=== PATIENT | female | born 1940 | race American Indian/Alaskan Native ===

== ENCOUNTER 2017-12-04 10:34 | Outpatient (CLI) | payer MEDICARE, OTHER ==
--- NOTE | 2017-12-04 11:53 | Ultrasound Report ---
ULTRASOUND ABDOMEN COMPLETE: TECHNIQUE: Transabdominal ultrasound with color Doppler interrogation. HISTORY: abdominal pain. COMPARISON: none. FINDINGS: LIVER: The liver parenchyma is echogenic and attenuates the ultrasound beam consistent with moderate diffuse fatty infiltration. No focal liver mass or surface nodularity is identified. BILIARY SYSTEM: The gallbladder has been surgically removed. No biliary dilatation. The CBD measures 4 mm. PANCREAS: Normal. SPLEEN: Normal. KIDNEYS: Normal. AORTA/IVC: Normal. ASCITES: None. IMPRESSION: Moderate fatty infiltration of the liver parenchyma. Cholecystectomy.
== END 2017-12-04 10:35 | disposition home or self-care (01) ==
LOC: US 10:34
PROVIDERS: ATTEND Internal Medicine
DX: K76.0 Fatty (change of) liver, not elsewhere classified (principal); Z90.49 Acquired absence of other specified parts of digestive tract
CPT/HCPCS: 76700

== ENCOUNTER 2017-12-13 10:54 | Emergency (ER) | payer MEDICARE, OTHER ==
[2017-12-13 11:30] LABS: Basophils # (Auto) 0.1 K/mm3 (0.0-0.1); Basophils % (Auto) 0.6 % (0.0-1.8); Eosinophils # (Auto) 0.3 K/mm3 (0.0-0.4); Eosinophils % (Auto) 3.9 % (0.0-4.3); Hematocrit 40.4 % (30.3-42.9); Hemoglobin 13.2 gm/dl (10.1-14.3); Lymphocytes # (Auto) 3.8 K/mm3 (1.2-5.4); Lymphocytes % (Auto) 44.5 % (13.4-35.0); Mean Corpuscular HGB Conc 33 % (30-34); Mean Corpuscular Hemoglobin 28 pg (28-32); Mean Corpuscular Volume 85 fl (79-97); Monocytes # (Auto) 0.8 K/mm3 (0.0-0.8); Monocytes % (Auto) 8.9 % (0.0-7.3); Platelet Count 262 K/mm3 (140-440); Red Blood Count 4.77 M/mm3 (3.65-5.03); Red Cell Distribution Width 16.3 % (13.2-15.2)
[2017-12-13 11:40] LABS: Albumin 3.9 g/dL (3.9-5); Calcium 9.6 mg/dL (8.4-10.2)
[2017-12-13 12:13] VITALS: BP 163/78
[2017-12-13 12:21] LABS: Bacteria,Urine 1+ /HPF (Negative); Bilirubin,Urine NEG (Negative); Blood,Urine NEG (Negative); Color,Urine Red (Yellow); Protein,Urine <15 mg/dL mg/dL (Negative); Urobilinogen,Urine < 2.0 mg/dL (<2.0)
--- NOTE | 2017-12-13 12:47 | Emergency Department Report ---
ED Abdominal Pain HPI - General Chief Complaint: Abdominal Pain Stated Complaint: LEFT FLANK PAIN Time Seen by Provider: 12/13/17 12:01 Source: patient Mode of arrival: Ambulatory Limitations: No Limitations - History of Present Illness -: Gradual, week(s) (She has had this upper left flank pain for weeks but it got worse 3 weeks ago when she lift her grandson from the floor. ) - Related Data Home Medications Medication Instructions Recorded Confirmed Last Taken Allopurinol [Zyloprim] 100 mg PO BID 10/14/14 10/14/14 Unknown Atenolol [Tenormin] 50 mg PO BID 10/14/14 10/14/14 Unknown Clonidine HCl [Catapres] 0.1 mg PO TID 10/14/14 10/14/14 Unknown Fluticasone [Flonase] 2 spray NS QDAY 10/14/14 10/14/14 Unknown Fluticasone/Salmeterol [Advair 1 each IH BID 10/14/14 10/14/14 Unknown Diskus 100-50 mcg] Furosemide [Lasix] 40 mg PO DAILY 10/14/14 10/14/14 Unknown HYDROcodone/ACETAMINOPHEN [Xodol 5 mg PO BID 10/14/14 10/20/14 Unknown 7.5-300 mg TAB] Insulin Aspart [NovoLOG Flexpen] 25 units SQ BID 10/14/14 10/14/14 Unknown Insulin Glargine,Hum.rec.anlog 60 unit SQ QHS 10/14/14 10/14/14 Unknown [Lantus Solostar] Liraglutide [Victoza 2-Broderick] 1.8 mg SQ QDAY 10/14/14 10/14/14 Unknown Pantoprazole [Protonix] 40 mg PO BID 10/14/14 10/14/14 Unknown Potassium Chloride [Klor-Con 10] 10 meq PO DAILY 10/14/14 10/14/14 Unknown Rosuvastatin (Nf) [Crestor] 10 mg PO QHS 10/14/14 10/14/14 Unknown Voltaren Gel 1 applicatio TRANSDERMA BID PRN 10/14/14 10/20/14 Unknown Previous Rx's Medication Instructions Recorded Last Taken Type Levofloxacin [Levaquin] 500 mg PO QDAY #5 tablet 10/22/14 Unknown Rx traMADol [Ultram] 50 mg PO Q4HR PRN #20 tablet 07/03/15 Unknown Rx Cyclobenzaprine [Flexeril] 10 mg PO TID PRN #20 tablet 12/13/17 Unknown Rx Allergies Allergy/AdvReac Type Severity Reaction Status Date / Time levofloxacin [From Levaquin] Allergy Intermediate Itching Verified 12/13/17 11: 00 aspirin Allergy Unknown Verified 12/13/17 11:00 ED Review of Systems ROS: Stated complaint: LEFT FLANK PAIN Other details as noted in HPI Constitutional: denies: chills, fever Eyes: denies: eye pain, eye discharge, vision change ENT: denies: ear pain, throat pain Respiratory: denies: cough, shortness of breath, wheezing Cardiovascular: denies: chest pain, palpitations Endocrine: no symptoms reported Gastrointestinal: denies: abdominal pain, nausea, diarrhea Genitourinary: denies: urgency, dysuria, discharge Musculoskeletal: denies: back pain, joint swelling, arthralgia Skin: denies: rash, lesions Neurological: denies: headache, weakness, paresthesias Psychiatric: denies: anxiety, depression Hematological/Lymphatic: denies: easy bleeding, easy bruising ED Past Medical Hx - Past Medical History Hx Hypertension: Yes Hx Congestive Heart Failure: No Hx Diabetes: Yes Hx Arthritis: Yes (Osteoarthritis bilateral knees) Hx Asthma: Yes Hx COPD: Yes (Home O2 2-3L) - Surgical History Hx Cholecystectomy: Yes Additional Surgical History: Hysterectomy, Surgery for tubal , tumor removed from abd. area - Social History Smoking Status: Never Smoker Substance Use Type: None - Medications Home Medications: Home Medications Medication Instructions Recorded Confirmed Last Taken Type Allopurinol [Zyloprim] 100 mg PO BID 10/14/14 10/14/14 Unknown History Atenolol [Tenormin] 50 mg PO BID 10/14/14 10/14/14 Unknown History Clonidine HCl [Catapres] 0.1 mg PO TID 10/14/14 10/14/14 Unknown History Fluticasone [Flonase] 2 spray NS QDAY 10/14/14 10/14/14 Unknown History Fluticasone/Salmeterol [Advair 1 each IH BID 10/14/14 10/14/14 Unknown History Diskus 100-50 mcg] Furosemide [Lasix] 40 mg PO DAILY 10/14/14 10/14/14 Unknown History HYDROcodone/ACETAMINOPHEN [Xodol 5 mg PO BID 10/14/14 10/20/14 Unknown History 7.5-300 mg TAB] Insulin Aspart [NovoLOG Flexpen] 25 units SQ BID 10/14/14 10/14/14 Unknown History Insulin Glargine,Hum.rec.anlog 60 unit SQ QHS 10/14/14 10/14/14 Unknown History [Lantus Solostar] Liraglutide [Victoza 2-Broderick] 1.8 mg SQ QDAY 10/14/14 10/14/14 Unknown History Pantoprazole [Protonix] 40 mg PO BID 10/14/14 10/14/14 Unknown History Potassium Chloride [Klor-Con 10] 10 meq PO DAILY 10/14/14 10/14/14 Unknown History Rosuvastatin (Nf) [Crestor] 10 mg PO QHS 10/14/14 10/14/14 Unknown History Voltaren Gel 1 applicatio TRANSDERMA BID PRN 10/14/14 10/20/14 Unknown History Levofloxacin [Levaquin] 500 mg PO QDAY #5 tablet 10/22/14 Unknown Rx traMADol [Ultram] 50 mg PO Q4HR PRN #20 tablet 07/03/15 Unknown Rx Cyclobenzaprine [Flexeril] 10 mg PO TID PRN #20 tablet 12/13/17 Unknown Rx ED Physical Exam - General Limitations: No Limitations General appearance: alert, in no apparent distress - Head Head exam: Present: atraumatic, normocephalic - Eye Eye exam: Present: normal appearance - ENT ENT exam: Present: mucous membranes moist - Neck Neck exam: Present: normal inspection - Respiratory Respiratory exam: Present: normal lung sounds bilaterally. Absent: respiratory distress - Cardiovascular Cardiovascular Exam: Present: regular rate, normal rhythm. Absent: systolic murmur, diastolic murmur, rubs, gallop - GI/Abdominal GI/Abdominal exam: Present: soft, tenderness (left upper flank), normal bowel sounds, hernia - Extremities Exam Extremities exam: Present: normal inspection - Back Exam Back exam: Present: normal inspection - Neurological Exam Neurological exam: Present: alert, oriented X3 - Psychiatric Psychiatric exam: Present: normal affect, normal mood - Skin Skin exam: Present: warm, dry, intact, normal color. Absent: rash ED Course Vital Signs 12/13/17 12/13/17 12/13/17 11:02 12:12 12:13 Temperature 97.7 F Pulse Rate 95 H 100 H Respiratory 18 18 18 Rate Blood Pressure 173/80 Blood Pressure 163/78 [Right] O2 Sat by Pulse 100 100 100 Oximetry ED Medical Decision Making - Lab Data Result diagrams: 12/13/17 11:11 12/13/17 11:11 Critical care attestation.: If time is entered above; I have spent that time in minutes in the direct care of this critically ill patient, excluding procedure time. ED Disposition Clinical Impression: Left flank pain Disposition: DC-01 TO HOME OR SELFCARE Is pt being admited?: No Does the pt Need Aspirin: No Condition: Stable Instructions: Abdominal Pain (ED) Prescriptions: Cyclobenzaprine [Flexeril] 10 mg PO TID PRN #20 tablet PRN Reason: Muscle Spasm Time of Disposition: 14:13
[2017-12-13] MEDS ORDERED: TORADOL IM ONE (13:10)
--- NOTE | 2017-12-13 13:31 | Cat Scan Report ---
CT scan of abdomen and pelvis without IV contrast: History: Abdominal pain. Findings: Bilateral chronic lung changes probably related to fibrosis and bronchiectasis. Moderate-sized sliding hiatal hernia. Normal liver with left lobe extending to spleen. Normal pancreas and spleen. Patient status post cholecystectomy. Normal adrenals kidney parenchyma and bladder. No free intraperitoneal fluid or air. No evidence of adenopathy. Normal appendix. Gaseous colon with a large volume of stool in colon. Diverticulosis sigmoid colon. No diverticulitis. Small left ovarian cyst. No modest reduction. Impression: Chronic lung changes. Moderate-sized sliding hiatal hernia. Gaseous colon with large volume stool in colon with diverticulosis colon. Bilateral inguinal hernia containing fat. Large ventral hernia containing fat measures 7 cm in transverse diameter.
== END 2017-12-13 14:54 | disposition home or self-care (01) ==
LOC: ED 10:54
DX: R10.9 Unspecified abdominal pain (principal); I10 Essential (primary) hypertension; E11.9 Type 2 diabetes mellitus without complications; M19.90 Unspecified osteoarthritis, unspecified site; J44.9 Chronic obstructive pulmonary disease, unspecified; Z79.4 Long term (current) use of insulin; Z88.6 Allergy status to analgesic agent; Z88.1 Allergy status to other antibiotic agents
CPT/HCPCS: 36415; 74176; 80053; 81001; 83690; 85025; 96372; 99284; J1885

== ENCOUNTER 2018-05-25 08:02 | Outpatient (CLI) | payer MEDICARE, OTHER ==
--- NOTE | 2018-05-26 11:16 | Mammography Report ---
BILATERAL DIGITAL SCREENING MAMMOGRAM with CAD : 05/25/18 08:02:00 CLINICAL: Routine screening. COMPARISON:02/17/14 FINDINGS: The breasts are heterogeneously dense, which may obscure small masses. No mass, architectural distortion or suspicious calcifications. IMPRESSION: No mammographic evidence of malignancy. BI-RADS CATEGORY: 2 -- Benign RECOMMENDATION: Routine mammographic screening in one year.
== END 2018-05-25 08:03 | disposition home or self-care (01) ==
LOC: MAMMO 08:02
PROVIDERS: ATTEND Internal Medicine
DX: Z12.31 Encounter for screening mammogram for malignant neoplasm of breast (principal); I10 Essential (primary) hypertension; E11.9 Type 2 diabetes mellitus without complications; E78.00 Pure hypercholesterolemia, unspecified; M17.0 Bilateral primary osteoarthritis of knee; J44.1 Chronic obstructive pulmonary disease with (acute) exacerbation; Z88.6 Allergy status to analgesic agent; Z88.1 Allergy status to other antibiotic agents; Z90.710 Acquired absence of both cervix and uterus; Z90.49 Acquired absence of other specified parts of digestive tract
CPT/HCPCS: 77067

== ENCOUNTER 2022-04-07 16:18 | Inpatient (IN) | payer MEDICARE, OTHER ==
--- NOTE | 2022-04-07 17:52 | Emergency Department Report ---
<JOSIE MELGAR - Last Filed: 04/07/22 20:56> ED Shortness of Breath HPI - General Chief Complaint: Dyspnea/Respdistress Stated Complaint: LOW 02 Time Seen by Provider: 04/07/22 17:03 Source: patient, EMS Mode of arrival: Stretcher Limitations: No Limitations - History of Present Illness Initial Comments: 81-year-old female with a past medical history of pulmonary fibrosis or COPD with home oxygen dependence, hypertension, and diabetes presents to the hospital from [facility] [facility] office for shortness of breath. Patient states she felt more short of breath this morning and complains of a cough productive of clear sputum. She complains of breath sided lateral rib pain worse with movement. No complaints of fever, calf tenderness, current leg edema, history of PE/DVT. Patient denies palpitations. Patient is hypertensive and tachycardic. Currently satting 97% on 1 and half liters of oxygen. Patient states she uses 6 L of oxygen at home with a long oxygen tube cannula because she feels better with a higher oxygen level. She cannot tell me she has been prescribed by the automatic lehr operator. Patient received a COVID booster last week. Pulmonology: Dr. Dietrich - Related Data Home Medications Medication Instructions Recorded Confirmed Last Taken Dulaglutide (Nf) [Trulicity (Nf)] 1.5 mg SUB-Q QWEEK 03/01/19 11/27/21 02/27/19 Fluticasone/Salmeterol [Advair 1 each IH BID 03/01/19 11/27/21 Unknown 500-50 Diskus] Mirtazapine [Remeron 30mg TAB] 30 mg PO DAILY 03/01/19 11/27/21 11/26/21 Previous Rx's Medication Instructions Recorded Last Taken Type Clopidogrel [Plavix] 75 mg PO QDAY #30 tablet 11/28/21 Unknown Rx Fluticasone [Flonase] 100 mcg NS QDAY #1 bottle 11/28/21 Unknown Rx Furosemide [Lasix TAB] 40 mg PO QDAY #30 tablet 11/28/21 Unknown Rx Insulin Aspart (Nf) [NovoLOG 100 10 unit SQ AC #1 vial 11/28/21 Unknown Rx UNITS/ML VIAL] Insulin Glargine [Lantus VIAL] 40 units SUB-Q QHS #2 vial 11/28/21 Unknown Rx Ipratropium/Albuterol Sulfate 1 ampul IH Q3H PRN #50 ampul.neb 11/28/21 Unknown Rx [DUONEB *Not for PRN Use*] Latanoprost 0.005% 1 drops OU QPM bottle 11/28/21 Unknown Rx Pantoprazole [Protonix TAB] 40 mg PO QDAY #30 tablet 11/28/21 Unknown Rx Potassium Chloride [K-Dur] 20 meq PO QDAY #30 11/28/21 Unknown Rx Prednisone [predniSONE 5 mg (6-Day 5 mg PO .TAPER #1 11/28/21 Unknown Rx Pack, 21 Tabs)] Rosuvastatin Calcium [Crestor] 10 mg PO QDAY #30 11/28/21 Unknown Rx allopurinoL [Zyloprim] 100 mg PO QDAY #30 tablet 11/28/21 Unknown Rx atenoloL [Tenormin] 50 mg PO QDAY #30 tablet 11/28/21 Unknown Rx calcitrioL [Rocaltrol] 0.5 mcg PO QDAY #30 capsule 11/28/21 Unknown Rx cloNIDine [Catapres] 0.1 mg PO TID #90 11/28/21 Unknown Rx levoFLOXacin [Levaquin] 750 mg PO QDAY #5 tablet 11/28/21 Unknown Rx traMADoL [Ultram 50 MG tab] 50 mg PO BID #20 11/28/21 Unknown Rx Allergies Allergy/AdvReac Type Severity Reaction Status Date / Time levofloxacin [From Levaquin] Allergy Intermediate Itching Verified 11/27/21 11:29 aspirin Allergy Unknown Verified 11/27/21 11:29 ED Past Medical Hx - Past Medical History Previous Medical History?: Yes Hx Hypertension: Yes Hx Congestive Heart Failure: No Hx Diabetes: Yes Hx Arthritis: Yes (Osteoarthritis bilateral knees) Hx Asthma: Yes Hx COPD: Yes - Surgical History Past Surgical History?: Yes Hx Cholecystectomy: Yes Additional Surgical History: Hysterectomy, Surgery for tubal , tumor removed from abd. area - Social History Smoking Status: Never Smoker Substance Use Type: Alcohol - Medications Home Medications: Home Medications Medication Instructions Recorded Confirmed Last Taken Type Dulaglutide (Nf) [Trulicity (Nf)] 1.5 mg SUB-Q QWEEK 03/01/19 11/27/21 02/27/19 History Fluticasone/Salmeterol [Advair 1 each IH BID 03/01/19 11/27/21 Unknown History 500-50 Diskus] Mirtazapine [Remeron 30mg TAB] 30 mg PO DAILY 03/01/19 11/27/21 11/26/21 History Clopidogrel [Plavix] 75 mg PO QDAY #30 tablet 11/28/21 Unknown Rx Fluticasone [Flonase] 100 mcg NS QDAY #1 bottle 11/28/21 Unknown Rx Furosemide [Lasix TAB] 40 mg PO QDAY #30 tablet 11/28/21 Unknown Rx Insulin Aspart (Nf) [NovoLOG 100 10 unit SQ AC #1 vial 11/28/21 Unknown Rx UNITS/ML VIAL] Insulin Glargine [Lantus VIAL] 40 units SUB-Q QHS #2 vial 11/28/21 Unknown Rx Ipratropium/Albuterol Sulfate 1 ampul IH Q3H PRN #50 ampul.neb 11/28/21 Unknown Rx [DUONEB *Not for PRN Use*] Latanoprost 0.005% 1 drops OU QPM bottle 11/28/21 Unknown Rx Pantoprazole [Protonix TAB] 40 mg PO QDAY #30 tablet 11/28/21 Unknown Rx Potassium Chloride [K-Dur] 20 meq PO QDAY #30 11/28/21 Unknown Rx Prednisone [predniSONE 5 mg (6-Day 5 mg PO .TAPER #1 11/28/21 Unknown Rx Pack, 21 Tabs)] Rosuvastatin Calcium [Crestor] 10 mg PO QDAY #30 11/28/21 Unknown Rx allopurinoL [Zyloprim] 100 mg PO QDAY #30 tablet 11/28/21 Unknown Rx atenoloL [Tenormin] 50 mg PO QDAY #30 tablet 11/28/21 Unknown Rx calcitrioL [Rocaltrol] 0.5 mcg PO QDAY #30 capsule 11/28/21 Unknown Rx cloNIDine [Catapres] 0.1 mg PO TID #90 11/28/21 Unknown Rx levoFLOXacin [Levaquin] 750 mg PO QDAY #5 tablet 11/28/21 Unknown Rx traMADoL [Ultram 50 MG tab] 50 mg PO BID #20 11/28/21 Unknown Rx ED Physical Exam - General Limitations: No Limitations - Other Other exam information: General: No acute distress Head: Atraumatic Eyes: normal appearance ENT: Moist mucous membranes Neck: Normal appearance, no midline tenderness Chest: Rhonchi right lung field CV: Regular rate and rhythm Abdomen: Soft, normal bowel sounds, nontender, nondistended, no rebound or guarding Back: Normal inspection Extremity: Normal inspection, full range of motion Neuro: Alert O x 3, no facial asymmetry, speech clear, no gross motor sensory deficit Psych: Appropriate behavior Skin: No rash ED Course - Reevaluation(s) Reevaluation #1: 04/07/22 19:53 Patient remains tachycardic at rest with heart rate 190-120. Saturation is 94 to 95% on 1.5 L. Patient continues to insist that she does not feel short of breath. Previous medical record reviewed inpatient was prescribed atenolol 50 mg daily in November. 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 Family member at the bedside also cannot confirm if patient is supposed to take atenolol. November states that patient appears to be doing much better than when she was seen at the automatic [facility] operator office with significant shortness of breath. ED Medical Decision Making - Lab Data Result diagrams: 04/07/22 17:46 04/07/22 17:46 Lab Results 04/07/22 04/07/22 04/07/22 Range/Units 17:46 17:46 17:46 WBC 9.9 (4.5-11.0) K/mm3 RBC 4.30 (3.65-5.03) M/mm3 Hgb 11.6 (10.1-14.3) gm/dl Hct 35.5 (30.3-42.9) % MCV 83 (79-97) fl MCH 27 L (28-32) pg MCHC 33 (30-34) % RDW 15.2 (13.2-15.2) % Plt Count 332 (140-440) K/mm3 Lymph % (Auto) 19.9 (13.4-35.0) % Arthur % (Auto) 8.1 H (0.0-7.3) % Eos % (Auto) 1.9 (0.0-4.3) % Baso % (Auto) 0.6 (0.0-1.8) % Lymph # (Auto) 2.0 (1.2-5.4) K/mm3 Arthur # (Auto) 0.8 (0.0-0.8) K/mm3 Eos # (Auto) 0.2 (0.0-0.4) K/mm3 Baso # (Auto) 0.1 (0.0-0.1) K/mm3 Seg Neutrophils % 69.5 (40.0-70.0) % Seg Neutrophils # 6.9 (1.8-7.7) K/mm3 PT 13.2 (12.2-14.9) Sec. INR 0.91 (0.87-1.13) APTT 32.1 (24.2-36.6) Sec. Sodium 140 (137-145) mmol/L Potassium 4.4 (3.6-5.0) mmol/L Chloride 98.1 (98-107) mmol/L Carbon Dioxide 28 (22-30) mmol/L Anion Gap 18 mmol/L BUN 21 H (7-17) mg/dL Creatinine 1.4 H (0.6-1.2) mg/dL Estimated GFR 44 ml/min BUN/Creatinine Ratio 15 % Glucose 320 H (65-100) mg/dL POC Glucose (70-105) mg/dL Calcium 9.9 (8.4-10.2) mg/dL Total Bilirubin 0.30 (0.1-1.2) mg/dL AST 19 (5-40) units/L ALT 12 (7-56) units/L Alkaline Phosphatase 89 (35-129) units/L Troponin T 0.013 (0.00-0.029) ng/mL NT-Pro-B Natriuret Pep 229.6 (0-900) pg/mL Total Protein 8.5 H (6.3-8.2) g/dL Albumin 4.0 (3.9-5) g/dL Albumin/Globulin Ratio 0.9 % TSH (0.270-4.200) mlU/mL Free T4 (0.76-1.46) ng/dL 04/07/22 04/07/22 Range/Units 17:46 20:40 WBC (4.5-11.0) K/mm3 RBC (3.65-5.03) M/mm3 Hgb (10.1-14.3) gm/dl Hct (30.3-42.9) % MCV (79-97) fl MCH (28-32) pg MCHC (30-34) % RDW (13.2-15.2) % Plt Count (140-440) K/mm3 Lymph % (Auto) (13.4-35.0) % Arthur % (Auto) (0.0-7.3) % Eos % (Auto) (0.0-4.3) % Baso % (Auto) (0.0-1.8) % Lymph # (Auto) (1.2-5.4) K/mm3 Arthur # (Auto) (0.0-0.8) K/mm3 Eos # (Auto) (0.0-0.4) K/mm3 Baso # (Auto) (0.0-0.1) K/mm3 Seg Neutrophils % (40.0-70.0) % Seg Neutrophils # (1.8-7.7) K/mm3 PT (12.2-14.9) Sec. INR (0.87-1.13) APTT (24.2-36.6) Sec. Sodium (137-145) mmol/L Potassium (3.6-5.0) mmol/L Chloride (98-107) mmol/L Carbon Dioxide (22-30) mmol/L Anion Gap mmol/L BUN (7-17) mg/dL Creatinine (0.6-1.2) mg/dL Estimated GFR ml/min BUN/Creatinine Ratio % Glucose (65-100) mg/dL POC Glucose 315 H (70-105) mg/dL Calcium (8.4-10.2) mg/dL Total Bilirubin (0.1-1.2) mg/dL AST (5-40) units/L ALT (7-56) units/L Alkaline Phosphatase (35-129) units/L Troponin T (0.00-0.029) ng/mL NT-Pro-B Natriuret Pep (0-900) pg/mL Total Protein (6.3-8.2) g/dL Albumin (3.9-5) g/dL Albumin/Globulin Ratio % TSH 0.913 (0.270-4.200) mlU/mL Free T4 0.94 (0.76-1.46) ng/dL - EKG Data -: EKG Interpreted by Ri EKG shows normal: sinus rhythm, ST-T waves (no stemi) Rate: tachycardia (120) - Radiology Data Radiology results: report reviewed CHEST 1 VIEW 04/07/2022 5:38 PM INDICATION / CLINICAL INFORMATION: Shortness of breath. COMPARISON: 11/26/21. FINDINGS: SUPPORT DEVICES: None. HEART / MEDIASTINUM: Mild cardiomegaly is stable. LUNGS / PLEURA: There is moderate patchy parenchymal disease in both lower lung zones, right greater than left, minimally changed since the prior exam. No pneumothorax. ADDITIONAL FINDINGS: No significant additional findings. IMPRESSION: Moderate parenchymal opacities in both lower lung zones are recurrent or chronic. CT angio chest INDICATION / CLINICAL INFORMATION: sob, hypoxia, chronic lung disease. TECHNIQUE: Axial CT images were obtained through the chest after injection of 100 cc of Omnipaque 350 IV contrast. 3 plane MIP and/or 3D reconstructions were produced. All CT scans at this location are performed using CT dose reduction for ALARA by means of automated exposure control. COMPARISON: CT of the chest from 03/03/2019. Same-day chest radiograph. FINDINGS: PULMONARY ARTERIES: No central or segmental pulmonary embolus. THORACIC AORTA: Mild atherosclerotic calcification without acute abnormality. HEART: Mild cardiac enlargement. No pericardial effusion. CORONARY ARTERY CALCIFICATION: Severe coronary artery calcifications. LYMPHADENOPATHY: Multiple calcified lymph nodes throughout the mediastinum and bilateral hilar regions noted. Prominent lymph nodes along the upper posterior mediastinum appear improved in size from prior CT from 2019. No axillary lymphadenopathy. LUNGS/PLEURA: Scattered subpleural reticulation with basilar predominant severe bronchiectasis, most pronounced in the right lower lobe. There is diffuse bronchial wall thickening. Patchy giancarlo bronchovascular nodules and mild airspace opacities in the right lower lobe. Mild patchy consolidation within the left lower lobe. No pleural effusion or pneumothorax. OTHER FINDINGS: None. UPPER ABDOMEN: No acute findings. SKELETAL SYSTEM: No acute osseous findings. IMPRESSION: 1. No evidence of pulmonary embolism. 2. Extensive bronchiectasis and fibrotic changes of the lower lungs, right greater than left, progressed from prior study in 2019. There is superimposed patchy airspace consolidation of bilateral lower lobes, suspicious for superimposed acute pneumonia. 3. Other stable chronic and incidental findings as above. - Medical Decision Making 81-year-old female with a past medical history of pulmonary fibrosis and home O2 dependence presents to the hospital with increased shortness of breath while at [employer] office today. Despite patient stating her symptoms are improved since ED arrival she had persistent sinus tachycardia. CT angiogram performed and revealed that patient has worsening fibrotic changes in bilateral lower lobe pneumonia. Blood cultures ordered. Antibiotics provided. Patient also received steroids and orders for insulin placed. As per medical record review patient has been prescribed atenolol in the past and it is unclear if this is part of her current medication list. 1 dose of atenolol ordered as well. Patient will be admitted to the hospital service with pulmonology consultation. Consultation ordered. Case will be signed out to Dr. Boston to call the nighttime hospitalist Dr. New to admit patient at shift change COVID test ordered Critical Care Time: No ED Disposition Clinical Impression: Bilateral pneumonia Qualifiers: Pneumonia type: due to unspecified organism Lung location: unspecified part of lung Qualified Code(s): J18.9 - Pneumonia, unspecified organism Disposition: ADMITTED INPATIENT Is pt being admited?: Yes Condition: Stable Instructions: Bacterial Pneumonia (ED) Time of Disposition: 21:00 <LAMBERT BOSTON - Last Filed: 04/07/22 22:37> ED Review of Systems ROS: Stated complaint: LOW 02 Other details as noted in HPI ED Course Vital Signs 04/07/22 04/07/22 04/07/22 16:33 17:10 17:21 Temperature 99.1 F 97.5 F L Pulse Rate 132 H 120 H Respiratory 20 26 H Rate Blood Pressure 220/110 Blood Pressure 163/80 [Left] O2 Sat by Pulse 95 98 98 Oximetry 04/07/22 04/07/22 18:31 21:07 Temperature Pulse Rate 121 H 123 H Respiratory 25 H Rate Blood Pressure 200/185 Blood Pressure 177/85 [Left] O2 Sat by Pulse 96 Oximetry - Reevaluation(s) Reevaluation #2: 04/07/22 22:35 Pt signed out to me with sob with working diagnosis of bilateral pneumonia on CT chest-- pending admission by the night hospitalist-- Dr Little consulted who accept pt for further evaluation and treatment. ED Medical Decision Making - Lab Data Result diagrams: 04/07/22 17:46 04/07/22 17:46 Critical care attestation.: If time is entered above; I have spent that time in minutes in the direct care of this critically ill patient, excluding procedure time. ED Disposition Does the pt Need Aspirin: No
[2022-04-07 18:01] LABS: Basophils # (Auto) 0.1 K/mm3 (0.0-0.1); Basophils % (Auto) 0.6 % (0.0-1.8); Eosinophils # (Auto) 0.2 K/mm3 (0.0-0.4); Eosinophils % (Auto) 1.9 % (0.0-4.3); Hematocrit 35.5 % (30.3-42.9); Hemoglobin 11.6 gm/dl (10.1-14.3); Lymphocytes % (Auto) 19.9 % (13.4-35.0); Mean Corpuscular HGB Conc 33 % (30-34); Mean Corpuscular Volume 83 fl (79-97); Monocytes # (Auto) 0.8 K/mm3 (0.0-0.8); Monocytes % (Auto) 8.1 % (0.0-7.3); Platelet Count 332 K/mm3 (140-440); Red Cell Distribution Width 15.2 % (13.2-15.2)
[2022-04-07 18:21] LABS: INR 0.91 (0.87-1.13)
[2022-04-07 18:22] LABS: Partial Thromboplastin Time 32.1 Sec. (24.2-36.6)
[2022-04-07] MEDS ORDERED: methylPREDNISolone Sod Succinate 125 MG/2 ML INJ IV ONE (18:27)
[2022-04-07 18:39] LABS: Calcium 9.9 mg/dL (8.4-10.2)
[2022-04-07 18:45] LABS: Free T4 (Free Thyroxine) 0.94 ng/dL (0.76-1.46)
[2022-04-07] MEDS ORDERED: atenoloL 50 MG TAB PO ONE (20:22)
[2022-04-07] MEDS ORDERED: INSULIN REGULAR, HUMAN 100 UNITS/1 ML IV ONE (20:23)
--- NOTE | 2022-04-07 20:53 | Cat Scan Report ---
CT angio chest INDICATION / CLINICAL INFORMATION: sob, hypoxia, chronic lung disease. TECHNIQUE: Axial CT images were obtained through the chest after injection of 100 cc of Omnipaque 350 IV contrast. 3 plane MIP and/or 3D reconstructions were produced. All CT scans at this location are performed using CT dose reduction for ALARA by means of automated exposure control. COMPARISON: CT of the chest from 03/03/2019. Same-day chest radiograph. FINDINGS: PULMONARY ARTERIES: No central or segmental pulmonary embolus. THORACIC AORTA: Mild atherosclerotic calcification without acute abnormality. HEART: Mild cardiac enlargement. No pericardial effusion. CORONARY ARTERY CALCIFICATION: Severe coronary artery calcifications. LYMPHADENOPATHY: Multiple calcified lymph nodes throughout the mediastinum and bilateral hilar region s noted. Prominent lymph nodes along the upper posterior mediastinum appear improved in size from josselin or CT from 2019. No axillary lymphadenopathy. LUNGS/PLEURA: Scattered subpleural reticulation with basilar predominant severe bronchiectasis, most pronounced in the right lower lobe. There is diffuse bronchial wall thickening. Patchy peribronchovas cular nodules and mild airspace opacities in the right lower lobe. Mild patchy consolidation within t he left lower lobe. No pleural effusion or pneumothorax. OTHER FINDINGS: None. UPPER ABDOMEN: No acute findings. SKELETAL SYSTEM: No acute osseous findings. IMPRESSION: 1. No evidence of pulmonary embolism. 2. Extensive bronchiectasis and fibrotic changes of the lower lungs, right greater than left, progres sed from prior study in 2019. There is superimposed patchy airspace consolidation of bilateral lower lobes, suspicious for superimposed acute pneumonia. 3. Other stable chronic and incidental findings as above. Signer Name: Anatoly Platt MD Signed: 04/07/2022 8:48 PM Workstation Name: [id number]
[2022-04-07] MEDS ORDERED: cefTRIAXone/NS 1 GM/50 ML 1 GM/50 ML BAG IV ONE (20:54)
[2022-04-07] MEDS ORDERED: AZITHROMYCIN/NS 500 MG/250 ML 500 MG/250 ML BAG IV ONE (20:55)
[2022-04-07] MEDS ORDERED: DEXTROSE 50% IN WATER (25GM) 50 ML SYRINGE IV PRN (23:14)
[2022-04-07] MEDS ORDERED: MAGNESIUM HYDROXIDE (MOM) ORAL LIQD UDC PO PRN (23:14)
[2022-04-07] MEDS ORDERED: MORPHINE 2 MG/1 ML INJ IV PRN (23:14)
[2022-04-07] MEDS ORDERED: ONDANSETRON 4 MG/2 ML INJ IV PRN (23:14)
[2022-04-07] MEDS ORDERED: MORPHINE 4 MG/1 ML INJ IV PRN (23:14)
--- NOTE | 2022-04-07 23:28 | History and Physical Report ---
History of Present Illness Date of examination: 04/07/22 Date of admission: 04/07/2022 Chief complaint: Shortness of Breath History of present illness: 81-year-old female, past medical history of pulmonary fibrosis, COPD with oxygen dependence, diabetes mellitus presents to the emergency room today [facility] for evaluation of shortness of breath. Patient has been having shortness of breath, cough productive of some clear sputum over the last couple of hours. She denies any fever or chills, no chest pain. She however complains of some pain on the rib cage which is worse upon movement. She denies any fall or trauma to the chest or ribs.\Patient denies any lower extremity pain or swelling. Denies any headache or dizziness and no diaphoresis. Upon arrival in the emergency room patient was found to be slightly tachycardic and hypertensive. She denies any sick contacts and no recent travel. Denies any contact with anyone with COVID-19. Patient is fully vaccinated against COVID-19. Work-up in the emergency room today, chest x-ray reveals bilateral pneumonia. Patient started on empiric IV antibiotics. Past History Past Medical History: arthritis, COPD, diabetes, hypertension, other (Asthma) Past Surgical History: Other (Hysterectomy, Surgery for tubal , tumor removed from abd. area) Social history: alcohol abuse (Occasional alcohol). denies: smoking Family history: no significant family history Medications and Allergies Allergies Allergy/AdvReac Type Severity Reaction Status Date / Time levofloxacin [From Levaquin] Allergy Intermediate Itching Verified 11/27/21 11:29 aspirin Allergy Unknown Verified 11/27/21 11:29 Home Medications Medication Instructions Recorded Confirmed Last Taken Type Dulaglutide (Nf) [Trulicity (Nf)] 1.5 mg SUB-Q QWEEK 03/01/19 11/27/21 02/27/19 History Fluticasone/Salmeterol [Advair 1 each IH BID 03/01/19 11/27/21 Unknown History 500-50 Diskus] Mirtazapine [Remeron 30mg TAB] 30 mg PO DAILY 03/01/19 11/27/21 11/26/21 History Clopidogrel [Plavix] 75 mg PO QDAY #30 tablet 11/28/21 Unknown Rx Fluticasone [Flonase] 100 mcg NS QDAY #1 bottle 11/28/21 Unknown Rx Furosemide [Lasix TAB] 40 mg PO QDAY #30 tablet 11/28/21 Unknown Rx Insulin Aspart (Nf) [NovoLOG 100 10 unit SQ AC #1 vial 11/28/21 Unknown Rx UNITS/ML VIAL] Insulin Glargine [Lantus VIAL] 40 units SUB-Q QHS #2 vial 11/28/21 Unknown Rx Ipratropium/Albuterol Sulfate 1 ampul IH Q3H PRN #50 ampul.neb 11/28/21 Unknown Rx [DUONEB *Not for PRN Use*] Latanoprost 0.005% 1 drops OU QPM bottle 11/28/21 Unknown Rx Pantoprazole [Protonix TAB] 40 mg PO QDAY #30 tablet 11/28/21 Unknown Rx Potassium Chloride [K-Dur] 20 meq PO QDAY #30 11/28/21 Unknown Rx Prednisone [predniSONE 5 mg (6-Day 5 mg PO .TAPER #1 11/28/21 Unknown Rx Pack, 21 Tabs)] Rosuvastatin Calcium [Crestor] 10 mg PO QDAY #30 11/28/21 Unknown Rx allopurinoL [Zyloprim] 100 mg PO QDAY #30 tablet 11/28/21 Unknown Rx atenoloL [Tenormin] 50 mg PO QDAY #30 tablet 11/28/21 Unknown Rx calcitrioL [Rocaltrol] 0.5 mcg PO QDAY #30 capsule 11/28/21 Unknown Rx cloNIDine [Catapres] 0.1 mg PO TID #90 11/28/21 Unknown Rx levoFLOXacin [Levaquin] 750 mg PO QDAY #5 tablet 11/28/21 Unknown Rx traMADoL [Ultram 50 MG tab] 50 mg PO BID #20 11/28/21 Unknown Rx Active Meds: Active Medications Acetaminophen (Acetaminophen 325 Mg Tab) 650 mg PO Q4H PRN PRN Reason: Pain MILD(1-3)/Fever >100.5/RUANO Dextrose (Dextrose 50% In Water (25gm) 50 Ml Syringe) 50 ml IV Q30MIN PRN; Protocol PRN Reason: Hypoglycemia Heparin Sodium (Porcine) (Heparin 5,000 Unit/1 Ml Vial) 5,000 unit SUB-Q Q8HR LESLEE Sodium Chloride (Nacl 0.9% 1000 Ml) 1,000 mls @ 75 mls/hr IV DIRECT LESLEE Ceftriaxone Sodium (Rocephin/Ns 2 Gm/100 Ml) 2 gm in 100 mls @ 200 mls/hr IV Q24H LESLEE; Protocol Insulin Human Lispro (Insulin Lispro 100 Unit/Ml) 0 unit SUB-Q ACHS LESLEE; Protocol Magnesium Hydroxide (Magnesium Hydroxide (Mom) Oral Liqd Udc) 30 ml PO Q4H PRN PRN Reason: Constipation Morphine Sulfate (Morphine 2 Mg/1 Ml Inj) 2 mg IV Q4H PRN PRN Reason: Pain, Moderate (4-6) Morphine Sulfate (Morphine 4 Mg/1 Ml Inj) 4 mg IV Q4H PRN PRN Reason: Pain , Severe (7-10) Ondansetron HCl (Ondansetron 4 Mg/2 Ml Inj) 4 mg IV Q8H PRN PRN Reason: Nausea And Vomiting Sodium Chloride (Sodium Chloride 0.9% 10 Ml Flush Syringe) 10 ml IV BID LESLEE Sodium Chloride (Sodium Chloride 0.9% 10 Ml Flush Syringe) 10 ml IV PRN PRN PRN Reason: LINE FLUSH Review of Systems Constitutional: no fever, no chills Ears, nose, mouth and throat: no nasal congestion, no sore throat Cardiovascular: no chest pain, no palpitations Respiratory: cough, shortness of breath Gastrointestinal: no abdominal pain, no nausea, no vomiting, no diarrhea Genitourinary Female: no pelvic pain, no flank pain, no dysuria Musculoskeletal: no neck pain, no low back pain Integumentary: no rash, no pruritis Neurological: no headaches, no confusion Psychiatric: no anxiety, no depression Endocrine: no polydipsia, no polyuria, no nocturia Exam - Constitutional Vitals: Temp Pulse Resp BP Pulse Ox 97.5 F L 123 H 25 H 200/185 96 04/07/22 17:10 04/07/22 21:07 04/07/22 18:31 04/07/22 21:07 04/07/22 18:31 General appearance: Present: no acute distress, well-nourished - EENT Eyes: Present: PERRL, EOM intact. Absent: scleral icterus ENT: hearing intact, clear oral mucosa, dentition normal - Neck Neck: Present: supple, normal ROM - Respiratory Respiratory effort: normal Respiratory: bilateral: rales - Cardiovascular Rhythm: regular Heart Sounds: Present: S1 & S2. Absent: gallop, systolic murmur, diastolic murmur, rub, click - Extremities Extremities: no ischemia, pulses intact, No edema, Full ROM Peripheral Pulses: within normal limits - Abdominal General gastrointestinal: Present: soft, non-tender, non-distended, normal bowel sounds. Absent: mass - Integumentary Integumentary: Present: clear, warm, dry, normal turgor. Absent: rash - Musculoskeletal Musculoskeletal: strength equal bilaterally - Psychiatric Psychiatric: appropriate mood/affect, intact judgment & insight, memory intact, cooperative - Neurologic Neurologic: CNII-XII intact, no focal deficits, moves all extremities HEART Score - HEART Score Troponin: Troponin T 0.013 ng/mL (0.00-0.029) 04/07/22 17:46 Results - Labs CBC & Chem 7: 04/08/22 05:04 04/08/22 05:04 Labs: Abnormal lab results 04/07/22 04/07/22 04/07/22 Range/Units 17:46 17:46 20:40 MCH 27 L (28-32) pg [place] % (Auto) 8.1 H (0.0-7.3) % BUN 21 H (7-17) mg/dL Creatinine 1.4 H (0.6-1.2) mg/dL Glucose 320 H (65-100) mg/dL POC Glucose 315 H (70-105) mg/dL Total Protein 8.5 H (6.3-8.2) g/dL Assessment and Plan Assessment: 1. Pneumonia 2. Hyponatremia 3. COPDoxygen dependent 4. Hypertension 5. Hyperglycemia 6. Acute on chronic renal failure Plan:: 1. Patient placed on empiric IV antibiotics 2. will keep O2 saturation greater equal to 92%. 3. Consult placed to pulmonology for further evaluation and recommendation. 4. Will resume routine home medications. 5. Placed on sliding scale insulin, will monitor accuchecks. 6. Please consult to nephrology for evaluation of function DVT Propphylaxis: SQ Heparin Code Status: Full Code
[2022-04-08] MEDS: HEPARIN 5,000 UNIT/1 ML VIAL SUB-Q SCH ×4 (05:40→21:57)
[2022-04-08 05:45] LABS: Basophils % (Auto) 0.2 % (0.0-1.8); Hematocrit 36.7 % (30.3-42.9); Hemoglobin 11.7 gm/dl (10.1-14.3); Lymphocytes # (Auto) 2.1 K/mm3 (1.2-5.4); Lymphocytes % (Auto) 26.7 % (13.4-35.0); Mean Corpuscular HGB Conc 32 % (30-34); Mean Corpuscular Volume 83 fl (79-97); Monocytes # (Auto) 0.1 K/mm3 (0.0-0.8); Monocytes % (Auto) 0.8 % (0.0-7.3); Platelet Count 337 K/mm3 (140-440); Red Cell Distribution Width 14.9 % (13.2-15.2)
[2022-04-08 06:00] LABS: Calcium 9.8 mg/dL (8.4-10.2)
[2022-04-08] MEDS ORDERED: INSULIN LISPRO 100 UNIT/ML SUB-Q ONE ×2 (06:12→22:40)
[2022-04-08] MEDS: SODIUM CHLORIDE 0.9% 1000 ML 1,000 ML IV SCH ×2 (06:28→21:56)
[2022-04-08] MEDS: INSULIN LISPRO 100 UNIT/ML SUB-Q SCH ×4 (08:10→22:51)
--- NOTE | 2022-04-08 09:00 | Consultation ---
History of Present Illness - Reason for Consult Consult date: 04/08/22 acute renal failure - History of Present Illness 81-year-old woman with past medical history of pulmonary fibrosis, COPD with oxygen dependence, diabetes mellitus presents for shortness of breath. Sent for pulmonary clinic, follows with Dr. Daly. At time of consult, patient appearing stable, denies any acute issues. Denies any known kidney disease, states has never seen nephrology. Was seen on consult by [facility] many years ago on prior [facility] admission. Patient has been having shortness of breath, edema, pain, nausea, vomiting. Admitted for bilateral pneumonia, on antibiotics, on 3L NC. Past History Past Medical History: arthritis, COPD, diabetes, hypertension, other (Asthma) Past Surgical History: Other (Hysterectomy, Surgery for tubal , tumor removed from abd. area) Social history: alcohol abuse (Occasional alcohol). denies: smoking Family history: no significant family history Medications and Allergies Allergies Allergy/AdvReac Type Severity Reaction Status Date / Time [facility] [[facility] Allergy Intermediate Itching Verified 11/27/21 11:29 aspirin Allergy Unknown Verified 11/27/21 11:29 Home Medications Medication Instructions Recorded Confirmed Last Taken Type Dulaglutide (Nf) [Trulicity (Nf)] 1.5 mg SUB-Q QWEEK 03/01/19 04/09/22 02/27/19 History Fluticasone/Salmeterol [Advair 1 each IH BID 03/01/19 04/09/22 Unknown History 500-50 Diskus] Mirtazapine [Remeron 30mg TAB] 30 mg PO DAILY 03/01/19 04/09/22 11/26/21 History Clopidogrel [Plavix] 75 mg PO QDAY #30 tablet 11/28/21 04/09/22 Unknown Rx Fluticasone [Flonase] 100 mcg NS QDAY #1 bottle 11/28/21 04/09/22 Unknown Rx Furosemide [Lasix TAB] 40 mg PO QDAY #30 tablet 11/28/21 04/09/22 Unknown Rx Insulin Aspart (Nf) [NovoLOG 100 10 unit SQ AC #1 vial 11/28/21 04/09/22 Unknown Rx UNITS/ML VIAL] Insulin Glargine [Lantus VIAL] 40 units SUB-Q QHS #2 vial 11/28/21 04/09/22 Unknown Rx Ipratropium/Albuterol Sulfate 1 ampul IH Q3H PRN #50 ampul.neb 11/28/21 04/09/22 Unknown Rx [DUONEB *Not for PRN Use*] Latanoprost 0.005% 1 drops OU QPM bottle 11/28/21 04/09/22 Unknown Rx Pantoprazole [Protonix TAB] 40 mg PO QDAY #30 tablet 11/28/21 04/09/22 Unknown Rx Potassium Chloride [K-Dur] 20 meq PO QDAY #30 11/28/21 04/09/22 Unknown Rx Prednisone [predniSONE 5 mg (6-Day 5 mg PO .TAPER #1 11/28/21 04/09/22 Unknown Rx Pack, 21 Tabs)] Rosuvastatin Calcium [Crestor] 10 mg PO QDAY #30 11/28/21 04/09/22 Unknown Rx allopurinoL [Zyloprim] 100 mg PO QDAY #30 tablet 11/28/21 04/09/22 Unknown Rx atenoloL [Tenormin] 50 mg PO QDAY #30 tablet 11/28/21 04/09/22 Unknown Rx calcitrioL [Rocaltrol] 0.5 mcg PO QDAY #30 capsule 11/28/21 04/09/22 Unknown Rx cloNIDine [Catapres] 0.1 mg PO TID #90 11/28/21 04/09/22 Unknown Rx levoFLOXacin [Levaquin] 750 mg PO QDAY #5 tablet 11/28/21 04/09/22 Unknown Rx traMADoL [Ultram 50 MG tab] 50 mg PO BID #20 11/28/21 04/09/22 Unknown Rx Active Meds: Active Medications Acetaminophen (Acetaminophen 325 Mg Tab) 650 mg PO Q4H PRN PRN Reason: Pain MILD(1-3)/Fever >100.5/RUANO Azithromycin (Azithromycin 250 Mg Tab) 500 mg PO QHS LESLEE Stop: 04/11/22 22:01 Dextrose (Dextrose 50% In Water (25gm) 50 Ml Syringe) 50 ml IV Q30MIN PRN; Protocol PRN Reason: Hypoglycemia Heparin Sodium (Porcine) (Heparin 5,000 Unit/1 Ml Vial) 5,000 unit SUB-Q Q8HR LESLEE Last Admin: 04/08/22 05:40 Dose: 5,000 unit Hydralazine HCl (Hydralazine 20 Mg/1 Ml Inj) 10 mg IV Q4HR PRN PRN Reason: Hypertension Sodium Chloride (Nacl 0.9% 1000 Ml) 1,000 mls @ 75 mls/hr IV DIRECT LESLEE Last Admin: 04/08/22 06:28 Dose: 75 mls/hr Ceftriaxone Sodium (Rocephin/Ns 2 Gm/100 Ml) 2 gm in 100 mls @ 200 mls/hr IV Q24H LESLEE; Protocol Stop: 04/11/22 23:59 Insulin Human Lispro (Insulin Lispro 100 Unit/Ml) 0 unit SUB-Q ACHS LESLEE; Pr otocol Last Admin: 04/08/22 08:10 Dose: 10 unit Magnesium Hydroxide (Magnesium Hydroxide (Mom) Oral Liqd Udc) 30 ml PO Q4H PRN PRN Reason: Constipation Morphine Sulfate (Morphine 2 Mg/1 Ml Inj) 2 mg IV Q4H PRN PRN Reason: Pain, Moderate (4-6) Morphine Sulfate (Morphine 4 Mg/1 Ml Inj) 4 mg IV Q4H PRN PRN Reason: Pain , Severe (7-10) Ondansetron HCl (Ondansetron 4 Mg/2 Ml Inj) 4 mg IV Q8H PRN PRN Reason: Nausea And Vomiting Sodium Chloride (Sodium Chloride 0.9% 10 Ml Flush Syringe) 10 ml IV BID LESLEE Sodium Chloride (Sodium Chloride 0.9% 10 Ml Flush Syringe) 10 ml IV PRN PRN PRN Reason: LINE FLUSH Last Admin: 04/08/22 06:28 Dose: 10 ml Review of Systems All systems: negative (as per HPI) Exam - Vital Signs Vital signs: Vital Signs Temp Pulse Resp BP Pulse Ox 99.1 F 132 H 20 220/110 95 04/07/22 16:33 04/07/22 16:33 04/07/22 16:33 04/07/22 16:33 04/07/22 16:33 - General Appearance General appearance: well-developed, well-nourished EENT: ATNC Neck: Present: neck supple Respiratory: Clear to Ascultation, Other (on NC) Heart: regular, S1S2 Gastrointestinal: Present: normoactive bowel sounds Integumentary: no rash, warm and dry Neurologic: no focal deficit, no asterixis Results - Lab Results 04/08/22 05:04 04/08/22 17:21 Most recent lab results Calcium 9.8 mg/dL (8.4-10.2) 04/08/22 05:04 Assessment and Plan # Acute Kidney Injury: creatinine 1.5->1.7; suspect pre-renal injury from hyperglycemia as well as tubular injury in setting of sepsis, tachycardia. No labs from today, recommend ongoing supportive measures for now, note IVF order - check PTH, urinalysis to assist with chronicity - renal imaging ordered - avoid nephrotoxins - renally dose medications - consider biopsy if DAPHNE worsening with no clear etiology, check serologies to consider GN injury pending urinalysis - no immediate need for renal replacement therapy # Alkalosis: suspect due to respiratory, CO2 retention? # Sepsis, Pneumonia: care per primary # HTN: BP stable on current regimen # DM # COPD, Pulmonary Fibrosis: pulmonary following
--- NOTE | 2022-04-08 11:29 | Progress Note ---
Assessment and Plan Assessment and plan: 81-year-old female, past medical history of pulmonary fibrosis, COPD with oxygen dependence, diabetes mellitus presents to the emergency room on 04/07 from the [facility] for evaluation of shortness of breath. Patient has been having shortness of breath, cough productive of some clear sputum. Upon arrival in the emergency room patient was found to be slightly tachycardic and hypertensive. Chest x-ray revealed bilateral pneumonia. Sepsis. Present on admission. Patient meets criteria given the tachypnea, tachycardia and diagnosis of pneumonia. Pneumonia Hyponatremia COPDoxygen dependent Hypertension Hyperglycemia Acute kidney injury on CKD. Pulmonary fibrosis. Diabetes mellitus type 2 Hospital course: 04/08/2022. Continue IV antibiotics and follow-up COVID PCR. Await pulmonary evaluation continue sliding scale insulin and monitor Accu-Cheks. Nephrology consultation pending. History Interval history: No new issues overnight Hospitalist Physical - Constitutional Vitals: Temp Pulse Resp BP Pulse Ox 97.9 F 99 H 22 158/81 98 04/08/22 06:57 04/08/22 06:57 04/08/22 06:57 04/08/22 06:57 04/08/22 08:22 General appearance: Present: no acute distress, well-nourished - EENT Eyes: Present: PERRL, EOM intact ENT: hearing intact, clear oral mucosa, dentition normal - Neck Neck: Present: supple, normal ROM - Respiratory Respiratory effort: normal Respiratory: bilateral: CTA - Cardiovascular Rhythm: regular Heart Sounds: Present: S1 & S2. Absent: gallop, rub - Extremities Extremities: no ischemia, No edema, Full ROM - Abdominal General gastrointestinal: soft, non-tender, non-distended, normal bowel sounds - Integumentary Integumentary: Present: clear, warm, dry - Neurologic Neurologic: CNII-XII intact, moves all extremities HEART Score - HEART Score Troponin: Troponin T 0.013 ng/mL (0.00-0.029) 04/07/22 17:46 Results - Labs CBC & Chem 7: 04/08/22 05:04 04/08/22 05:04 Labs: Laboratory Last Values WBC 7.7 K/mm3 (4.5-11.0) 04/08/22 05:04 RBC 4.40 M/mm3 (3.65-5.03) 04/08/22 05:04 Hgb 11.7 gm/dl (10.1-14.3) 04/08/22 05:04 Hct 36.7 % (30.3-42.9) 04/08/22 05:04 MCV 83 fl (79-97) 04/08/22 05:04 MCH 27 pg (28-32) L 04/08/22 05:04 MCHC 32 % (30-34) 04/08/22 05:04 RDW 14.9 % (13.2-15.2) 04/08/22 05:04 Plt Count 337 K/mm3 (140-440) 04/08/22 05:04 Lymph % (Auto) 26.7 % (13.4-35.0) 04/08/22 05:04 [place] % (Auto) 0.8 % (0.0-7.3) 04/08/22 05:04 Eos % (Auto) 0.0 % (0.0-4.3) 04/08/22 05:04 Baso % (Auto) 0.2 % (0.0-1.8) 04/08/22 05:04 Lymph # (Auto) 2.1 K/mm3 (1.2-5.4) 04/08/22 05:04 [place] # (Auto) 0.1 K/mm3 (0.0-0.8) 04/08/22 05:04 Eos # (Auto) 0.0 K/mm3 (0.0-0.4) 04/08/22 05:04 Baso # (Auto) 0.0 K/mm3 (0.0-0.1) 04/08/22 05:04 Seg Neutrophils % 72.3 % (40.0-70.0) H 04/08/22 05:04 Seg Neutrophils # 5.6 K/mm3 (1.8-7.7) 04/08/22 05:04 PT 13.2 Sec. (12.2-14.9) 04/07/22 17:46 INR 0.91 (0.87-1.13) 04/07/22 17:46 APTT 32.1 Sec. (24.2-36.6) 04/07/22 17:46 Sodium 138 mmol/L (137-145) 04/08/22 05:04 Potassium 4.9 mmol/L (3.6-5.0) 04/08/22 05:04 Chloride 96.7 mmol/L (98-107) L 04/08/22 05:04 Carbon Dioxide 31 mmol/L (22-30) H 04/08/22 05:04 Anion Gap 15 mmol/L 04/08/22 05:04 BUN 26 mg/dL (7-17) H 04/08/22 05:04 Creatinine 1.7 mg/dL (0.6-1.2) H 04/08/22 05:04 Estimated GFR 35 ml/min 04/08/22 05:04 BUN/Creatinine Ratio 15 % 04/08/22 05:04 Glucose 510 mg/dL (65-100) H* 04/08/22 05:04 POC Glucose 438 mg/dL (70-105) H 04/08/22 07:38 Calcium 9.8 mg/dL (8.4-10.2) 04/08/22 05:04 Total Bilirubin 0.30 mg/dL (0.1-1.2) 04/07/22 17:46 AST 19 units/L (5-40) 04/07/22 17:46 ALT 12 units/L (7-56) 04/07/22 17:46 Alkaline Phosphatase 89 units/L (35-129) 04/07/22 17:46 Troponin T 0.013 ng/mL (0.00-0.029) 04/07/22 17:46 NT-Pro-B Natriuret Pep 229.6 pg/mL (0-900) 04/07/22 17:46 Total Protein 8.5 g/dL (6.3-8.2) H 04/07/22 17:46 Albumin 4.0 g/dL (3.9-5) 04/07/22 17:46 Albumin/Globulin Ratio 0.9 % 04/07/22 17:46 TSH 0.913 mlU/mL (0.270-4.200) 04/07/22 17:46 Free T4 0.94 ng/dL (0.76-1.46) 04/07/22 17:46 Microbiology: Microbiology 04/07/22 21:12 Peripheral/Venous Blood Culture - Preliminary Culture in Progress 04/07/22 21:12 Peripheral/Venous Blood Culture - Preliminary Culture in Progress Active Medications - Current Medications Current Medications: Generic Name Dose Route Start Last Admin Trade Name Daltonq PRN Reason Stop Dose Admin Acetaminophen 650 mg 04/07/22 23:14 Acetaminophen 325 Mg Tab PO Q4H PRN Pain MILD(1-3)/Fever >100.5/RUANO Azithromycin 500 mg 04/08/22 22:00 Azithromycin 250 Mg Tab PO 04/11/22 22:01 QHS LESLEE Dextrose 50 ml 04/07/22 23:14 Dextrose 50% In Water (25gm) 50 Ml Syringe IV Q30MIN PRN Hypoglycemia Protocol Heparin Sodium (Porcine) 5,000 unit 04/08/22 06:00 04/08/22 05:40 Heparin 5,000 Unit/1 Ml Vial SUB-Q 5,000 unit Q8HR LESLEE Administration Hydralazine HCl 10 mg 04/08/22 06:13 Hydralazine 20 Mg/1 Ml Inj IV Q4HR PRN Hypertension Sodium Chloride 1,000 mls @ 75 mls/hr 04/07/22 23:15 04/08/22 06:28 Nacl 0.9% 1000 Ml IV 75 mls/hr DIRECT LESLEE Administration Ceftriaxone Sodium 2 gm in 100 mls @ 200 mls/hr 04/08/22 21:00 Rocephin/Ns 2 Gm/100 Ml IV 04/11/22 23:59 Q24H LESLEE Protocol Insulin Human Lispro 0 unit 04/08/22 07:30 04/08/22 08:10 Insulin Lispro 100 Unit/Ml SUB-Q 10 unit ACHS LESLEE Administration Protocol Magnesium Hydroxide 30 ml 04/07/22 23:14 Magnesium Hydroxide (Mom) Oral Liqd Udc PO Q4H PRN Constipation Morphine Sulfate 2 mg 04/07/22 23:14 Morphine 2 Mg/1 Ml Inj IV Q4H PRN Pain, Moderate (4-6) Morphine Sulfate 4 mg 04/07/22 23:14 Morphine 4 Mg/1 Ml Inj IV Q4H PRN Pain , Severe (7-10) Ondansetron HCl 4 mg 04/07/22 23:14 Ondansetron 4 Mg/2 Ml Inj IV Q8H PRN Nausea And Vomiting Sodium Chloride 10 ml 04/08/22 10:00 Sodium Chloride 0.9% 10 Ml Flush Syringe IV BID LESLEE Sodium Chloride 10 ml 04/07/22 23:14 04/08/22 06:28 Sodium Chloride 0.9% 10 Ml Flush Syringe IV 10 ml PRN PRN Administration LINE FLUSH
[2022-04-08] MEDS: hydrALAZINE 20 MG/1 ML INJ IV PRN ×2 (12:43→17:21)
[2022-04-08] MEDS: cloNIDine 0.1 MG TAB PO SCH ×3 (12:43→20:01)
[2022-04-08] MEDS: ACETAMINOPHEN 325 MG TAB PO PRN ×2 (12:51→17:21)
--- NOTE | 2022-04-08 12:55 | Consultation ---
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 denies: smoking Family history: no significant family history Medications and Allergies Allergies Allergy/AdvReac Type Severity Reaction Status Date / Time levofloxacin [From Levaquin] Allergy Intermediate Itching Verified 11/27/21 11:29 aspirin Allergy Unknown Verified 11/27/21 11:29 Home Medications Medication Instructions Recorded Confirmed Last Taken Type Dulaglutide (Nf) [Trulicity (Nf)] 1.5 mg SUB-Q QWEEK 03/01/19 11/27/21 02/27/19 History Fluticasone/Salmeterol [Advair 1 each IH BID 03/01/19 11/27/21 Unknown History 500-50 Diskus] Mirtazapine [Remeron 30mg TAB] 30 mg PO DAILY 03/01/19 11/27/21 11/26/21 History Clopidogrel [Plavix] 75 mg PO QDAY #30 tablet 11/28/21 Unknown Rx Fluticasone [Flonase] 100 mcg NS QDAY #1 bottle 11/28/21 Unknown Rx Furosemide [Lasix TAB] 40 mg PO QDAY #30 tablet 11/28/21 Unknown Rx Insulin Aspart (Nf) [NovoLOG 100 10 unit SQ AC #1 vial 11/28/21 Unknown Rx UNITS/ML VIAL] Insulin Glargine [Lantus VIAL] 40 units SUB-Q QHS #2 vial 11/28/21 Unknown Rx Ipratropium/Albuterol Sulfate 1 ampul IH Q3H PRN #50 ampul.neb 11/28/21 Unknown Rx [DUONEB *Not for PRN Use*] Latanoprost 0.005% 1 drops OU QPM bottle 11/28/21 Unknown Rx Pantoprazole [Protonix TAB] 40 mg PO QDAY #30 tablet 11/28/21 Unknown Rx Potassium Chloride [K-Dur] 20 meq PO QDAY #30 11/28/21 Unknown Rx Prednisone [predniSONE 5 mg (6-Day 5 mg PO .TAPER #1 11/28/21 Unknown Rx Pack, 21 Tabs)] Rosuvastatin Calcium [Crestor] 10 mg PO QDAY #30 11/28/21 Unknown Rx allopurinoL [Zyloprim] 100 mg PO QDAY #30 tablet 11/28/21 Unknown Rx atenoloL [Tenormin] 50 mg PO QDAY #30 tablet 11/28/21 Unknown Rx calcitrioL [Rocaltrol] 0.5 mcg PO QDAY #30 capsule 11/28/21 Unknown Rx cloNIDine [Catapres] 0.1 mg PO TID #90 11/28/21 Unknown Rx levoFLOXacin [Levaquin] 750 mg PO QDAY #5 tablet 11/28/21 Unknown Rx traMADoL [Ultram 50 MG tab] 50 mg PO BID #20 11/28/21 Unknown Rx Active Meds: Active Medications Acetaminophen (Acetaminophen 325 Mg Tab) 650 mg PO Q4H PRN PRN Reason: Pain MILD(1-3)/Fever >100.5/RUANO Last Admin: 04/08/22 12:51 Dose: 650 mg Allopurinol (Allopurinol 100 Mg Tab) 100 mg PO QDAY [facility] Arformoterol Tartrate (Arformoterol 15 Mcg/2 Ml Nebu) 15 mcg IH Q12HRT [facility] Atenolol (Atenolol 50 Mg Tab) 50 mg PO QDAY [facility] Azithromycin (Azithromycin 250 Mg Tab) 500 mg PO QHS [facility] Stop: 04/11/22 22:01 Budesonide (Budesonide 0.5 Mg/2 Ml Nebu) 0.5 mg IH Q12HRT [facility] Calcitriol (Calcitriol 0.5 Mcg Cap) 0.5 mcg PO QDAY [facility] Clonidine HCl (Clonidine 0.1 Mg Tab) 0.1 mg PO TID [facility] Last Admin: 04/08/22 12:43 Dose: 0.1 mg Clopidogrel Bisulfate (Clopidogrel 75 Mg Tab) 75 mg PO QDAY [facility] Dextrose (Dextrose 50% In Water (25gm) 50 Ml Syringe) 50 ml IV Q30MIN PRN; Protocol PRN Reason: Hypoglycemia Fluticasone Propionate (Fluticasone Propionate Nasal [place] 16 Gm) 100 mcg NS QDAY [facility] Heparin Sodium (Porcine) (Heparin 5,000 Unit/1 Ml Vial) 5,000 unit SUB-Q Q8HR [facility] Last Admin: 04/08/22 12:51 Dose: 5,000 unit Hydralazine HCl (Hydralazine 20 Mg/1 Ml Inj) 10 mg IV Q4HR PRN PRN Reason: Hypertension Last Admin: 04/08/22 12:43 Dose: 10 mg Sodium Chloride (Nacl 0.9% 1000 Ml) 1,000 mls @ 75 mls/hr IV DIRECT [facility] Last Admin: 04/08/22 06:28 Dose: 75 mls/hr Ceftriaxone Sodium (Rocephin/Ns 2 Gm/100 Ml) 2 gm in 100 mls @ 200 mls/hr IV Q24H [facility]; Protocol Stop: 04/11/22 23:59 Insulin Glargine (Insulin Glargine 100 Units/Ml) 10 units SUB-Q QHS [facility] Insulin Human Lispro (Insulin Lispro 100 Unit/Ml) 0 unit SUB-Q ACHS [facility]; Protocol Last Admin: 04/08/22 12:43 Dose: 8 unit Magnesium Hydroxide (Magnesium Hydroxide (Mom) Oral Liqd Udc) 30 ml PO Q4H PRN PRN Reason: Constipation Miscellaneous Medication (Dulaglutide (Nf)) 1.5 mg SUB-Q QWEEK [facility] Morphine Sulfate (Morphine 2 Mg/1 Ml Inj) 2 mg IV Q4H PRN PRN Reason: Pain, Moderate (4-6) Morphine Sulfate (Morphine 4 Mg/1 Ml Inj) 4 mg IV Q4H PRN PRN Reason: Pain , Severe (7-10) Ondansetron HCl (Ondansetron 4 Mg/2 Ml Inj) 4 mg IV Q8H PRN PRN Reason: Nausea And Vomiting Sodium Chloride (Sodium Chloride 0.9% 10 Ml Flush Syringe) 10 ml IV BID [facility] Last Admin: 04/08/22 12:43 Dose: 10 ml Sodium Chloride (Sodium Chloride 0.9% 10 Ml Flush Syringe) 10 ml IV PRN PRN PRN Reason: LINE FLUSH Last Admin: 04/08/22 06:28 Dose: 10 ml Physical Examination Vital signs: Vital Signs Temp Pulse Resp BP Pulse Ox 99.1 F 132 H 20 220/110 95 04/07/22 16:33 04/07/22 16:33 04/07/22 16:33 04/07/22 16:33 04/07/22 16:33 Results - Laboratory Findings CBC and BMP: 04/08/22 05:04 04/08/22 05:04 PT/INR, D-dimer PT 13.2 Sec. (12.2-14.9) 04/07/22 17:46 INR 0.91 (0.87-1.13) 04/07/22 17:46 Abnormal lab findings: Abnormal Labs 04/07/22 04/07/22 04/07/22 17:46 17:46 20:40 MCH 27 L [place] % (Auto) 8.1 H Seg Neutrophils % Chloride Carbon Dioxide BUN 21 H Creatinine 1.4 H Glucose 320 H POC Glucose 315 H Total Protein 8.5 H 04/08/22 04/08/22 04/08/22 05:04 05:04 07:38 MCH 27 L [place] % (Auto) Seg Neutrophils % 72.3 H Chloride 96.7 L Carbon Dioxide 31 H BUN 26 H Creatinine 1.7 H Glucose 510 H* POC Glucose 438 H Total Protein 04/08/22 12:06 MCH [place] % (Auto) Seg Neutrophils % Chloride Carbon Dioxide BUN Creatinine Glucose POC Glucose 418 H Total Protein
[2022-04-08] MEDS: methylPREDNISolone Sod Succinate 125 MG/2 ML INJ IV SCH (17:20)
[2022-04-08] MEDS: INSULIN GLARGINE 100 UNITS/ML SUB-Q SCH ×2 (18:45→22:42)
[2022-04-08] MEDS ORDERED: AZITHROMYCIN/NS 500 MG/250 ML 500 MG/250 ML BAG IV SCH (21:00)
[2022-04-08] MEDS: BUDESONIDE 0.5 MG/2 ML NEBU IH SCH (21:50)
[2022-04-08] MEDS: ARFORMOTEROL 15 MCG/2 ML NEBU IH SCH (21:51)
[2022-04-08] MEDS: cefTRIAXone/NS 2 GM/100 ML 2 GM/100 ML BAG IV SCH (21:54)
[2022-04-08] MEDS: FAMOTIDINE 20 MG TAB PO SCH (21:57)
[2022-04-08] MEDS: AZITHROMYCIN 250 MG TAB PO SCH (21:57)
[2022-04-08] MEDS ORDERED: SALMETEROL IH SCH (22:00)
[2022-04-08] MEDS ORDERED: FLUTICASONE IH SCH (22:00)
[2022-04-09] MEDS: methylPREDNISolone Sod Succinate 125 MG/2 ML INJ IV SCH ×2 (01:06→10:20)
--- NOTE | 2022-04-09 03:20 | Consultation ---
DATE OF CONSULTATION: 04/08/2022 CONSULTING PHYSICIAN: Dr. Peter Coe. REASON FOR CONSULTATION: Bilateral pneumonia versus pulmonary fibrosis. CHIEF COMPLAINT AND HISTORY OF PRESENT ILLNESS: The patient is a now 81-year-old obese female with past medical history significant amongst other things both for a diagnosis of pulmonary fibrosis, but also home oxygen dependent COPD, not really sure what her baseline O2 levels are at home. She came into the Emergency Room after being sent from the pulmonary clinic for evaluation of shortness of breath. She had been coughing up some clear phlegm in the preceding week and over the last couple of hours according to her in the ER, although to me she was not sure when she stopped coughing. She denied fevers or chills. She states she has been compliant with her medications. She denied any sick contacts. She denied chest pain. She denied any new-onset leg pain or swelling, either unilaterally or bilaterally. She had some pain in the rib cage that was worse with movement. She had denied any falls or trauma to the chest wall or ribs. She was evaluated in the Emergency Room, at which time she was tachycardic, hypertensive. Chest x-ray revealed bilateral pneumonia. She was started on empiric IV antibiotics and we are asked to assist with management. When I stopped by to see her, she was resting in the bed with mildly increased respiratory effort. She was on 4 liters nasal cannula. She denied any hemoptysis. She denied palpitations. This really is as much of the history of presentation as I have. PAST MEDICAL HISTORY: Arthritis, COPD, home oxygen dependent; diabetes, hypertension, diffuse parenchymal lung disease/pulmonary fibrosis, obesity. PAST SURGICAL HISTORY: She has had a hysterectomy. She has had a tubal surgical removal. MEDICATIONS: She was on at the time I stopped by to see her, according to the medication administration record included the following: Tylenol 650 mg p.o. q. 4 hours p.r.n. mild pain or fevers, allopurinol 100 mg p.o. daily, Brovana 15 mcg nebulized q. 12 hours, atenolol 50 mg p.o. daily, azithromycin 500 mg p.o. at bedtime, Pulmicort 0.5 mg nebulized q. 12 hours, Rocaltrol 0.5 mg p.o. daily, Rocephin 2 grams IV daily, clonidine 0.1 mg p.o. t.i.d., Plavix 75 mg p.o. daily, Flonase 100 mcg to each nostril daily, heparin 5000 units subcutaneous q. 8 hours, insulin Lantus 10 units subQ at bedtime as well as insulin via sliding scale, morphine sulfate 2 mg IV q. 4 hours p.r.n. moderate pain and 4 mg IV q. 4 hours p.r.n. severe pain, Zofran 4 mg IV q. 8 hours p.r.n. nausea and vomiting. ALLERGIES: LEVAQUIN AND ASPIRIN, NATURE OF THIS ALLERGY IS UNKNOWN. DIET: She is obese. Acute weight loss or gain history is unknown. FAMILY AND SOCIAL HISTORY: Lives in the community. Denies alcohol, tobacco or illicit drug use or abuse. Family history is otherwise noncontributory. REVIEW OF SYSTEMS: Denies loss of consciousness. No new onset seizures. No new onset focal weakness. Denies gross hematochezia or melena. Denies gross hematuria or dysuria. No hematemesis. She states she has had no hemoptysis. She does have a cough productive of clear phlegm. Denies polydipsia, polyuria. Denies heat or cold intolerance. Complete 13-system review of system was obtained. Pertinent positives and/or negatives as in body of history above, otherwise noncontributory. PHYSICAL EXAMINATION: VITAL SIGNS: On presentation, she had a low-grade fever, temperature 99.1 degrees Fahrenheit, pulse of 132, respiratory rate of 20, blood pressure 220/110, O2 sats were 95%, inspired oxygen concentration at that time was not recorded. When I stopped by to see her, her O2 sats were 98% and that was on 3 liters nasal cannula. GENERAL: She is an elderly looking obese female, normocephalic, atraumatic, talking to me, mostly in full sentences with mildly increased respiratory effort at rest. HEAD, EYES, EARS, NOSE AND THROAT: Anicteric. No conjunctival erythema. Oropharynx was moist. No gross jugular venous distention. No thyromegaly. She does have a large neck circumference. Grossly, there were no palpable lymph nodes in the supraclavicular or submandibular lymph node chains. LUNGS: Auscultation of both lung mccall significant for diminished bilateral breath sounds, bibasilar inspiratory rales. No active wheezing. Slightly prolonged expiratory phase. HEART: Sounds 1 and 2 are heard at the time of my evaluation, regular rate and rhythm without overt rubs or murmurs. ABDOMEN: Soft, full, protuberant. Bowel sounds are positive, nontender. No palpable hepatosplenomegaly. EXTREMITIES: Without overt digital clubbing or cyanosis. No pedal edema. Pedal pulses are 2+ bilaterally. NEUROLOGIC: Pupils were equal, round, about 4 mm, reactive to light. Extraocular muscle movements were intact. She moves all 4 extremities spontaneously. SKIN: Normal turgor in the areas I examined without overt cellulitis or rash. Please see the wound care nurses' notes for full description of her skin. PSYCHIATRIC: Mood was normal. Affect was appropriate. She did not have very good judgment and insight. Memory, she did have some short term memory issues. LABORATORY DATA: From my review are as follows: Admission white cell count 9900, hemoglobin 11.6, hematocrit 35.5, platelet count 332. INR was 0.91. Serum sodium 140, potassium 4.4, chloride 98, bicarbonate 28, BUN 24, creatinine 1.4, glucose was 320. Liver function tests essentially within normal limits. TSH within normal limits. Free T4 within normal limits. Two sets of blood cultures are no growth to date. Chest x-ray revealed bibasilar predominant increased interstitial markings. I cannot rule out an infiltrate in those areas. I cannot rule out small bilateral pleural effusions, no gross pneumothorax, no gross bony fracture. She did have some scoliosis. Compared to a chest x-ray from November of this year, the chest x-ray has not changed much. A CT scan was also done of her chest, not clear if it was a CT angio, but there is some contrast in the pulmonary artery and there are no gross filling defects or higher order filling defects to suggest large pulmonary emboli. Cannot rule out subcarinal lesion or fullness. She has multiple calcified lymph nodes throughout the mediastinum and hilar regions. Lung windows reveal upper lobe some paraseptal emphysema, but in particular mostly she has bronchiectatic changes in both upper lobes and lower lobes, right greater than left. Definite diffuse parenchymal lung disease. No gross pneumothorax, no gross bony fractures, no pulmonary emboli. This has progressed from a prior study in 2008, according to the read. She also has some consolidative changes in the lower lobes. I cannot rule out pneumonia. ASSESSMENT: 1. Acute exacerbation of chronic obstructive pulmonary disease. 2. Acute exacerbation of bronchiectasis. 3. Diffuse parenchymal lung disease/pulmonary fibrosis. 4. Community-acquired pneumonia. 5. Diabetes type 2. 6. Hypertension. 7. Arthritis. 8. Obesity. PLAN: I do agree with empiric community-acquired pneumonia therapy. We will complete 5 days of therapy with Rocephin and Zithromax. Oxygen will be weaned to keep sats greater than or equal to about 90%. Aspiration precautions will be maintained. Bilevel positive airway pressure ventilation therapy will be offered on a p.r.n. basis. We will continue long and short-acting bronchodilators. I am going to be starting her on systemic steroid therapy with IV Solu-Medrol. I will begin at 60 mg IV q. 8 hours and quickly taper from that point. CRP level and procalcitonin level will be ordered to help guide clinical decision making. She is appropriately on DVT prophylaxis. I will be putting her on GI prophylaxis with Pepcid. Flu and pneumonia vaccination will be addressed per protocol. Thank you very much for the consult. We will follow along and make further recommendations as picture progresses/becomes clearer. TID: [id number] RECEIPT: [id number] YAMILETH/CHARIS
[2022-04-09] MEDS: HEPARIN 5,000 UNIT/1 ML VIAL SUB-Q SCH ×3 (05:24→22:00)
[2022-04-09] MEDS: ARFORMOTEROL 15 MCG/2 ML NEBU IH SCH ×2 (08:15→20:04)
[2022-04-09] MEDS: BUDESONIDE 0.5 MG/2 ML NEBU IH SCH ×2 (08:15→20:04)
[2022-04-09] MEDS: cloNIDine 0.1 MG TAB PO SCH ×3 (08:40→20:40)
[2022-04-09] MEDS: INSULIN LISPRO 100 UNIT/ML SUB-Q SCH ×5 (08:40→21:59)
--- NOTE | 2022-04-09 08:41 | Progress Note ---
Assessment and Plan 81-year-old female, past medical history of pulmonary fibrosis, COPD with oxygen dependence, diabetes mellitus presents to the emergency room today from [facility] for evaluation of shortness of breath. Patient has been having shortness of breath, cough productive of some clear sputum over the last couple of hours. She denies any fever or chills, no chest pain. She however complains of some pain on the rib cage which is worse upon movement. She denies any fall or trauma to the chest or ribs.\Patient denies any lower extremity pain or swelling. Denies any headache or dizziness and no diaphoresis. Upon arrival in the emergency room patient was found to be tachycardic and hypertensive. She denies any sick contacts and no recent travel. Denies any contact with anyone with COVID-19. Patient is fully vaccinated against COVID-19. Work-up in the emergency room today, chest x-ray reveals bilateral pneumonia. Patient started on empiric IV antibiotics. Patient has no history of smoking, alcohol or drug abuse. 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 Allergic to Levaquin and aspirin. Patient weak. Resting on 2 litres O2. O2 saturation 95%. Patient says shortness of breath getting better. Denies chest pain or cough at this time. Patient afebrile. No leukocytosis. Blood pressure 134/72, Pulse 90, respiration 20. Chest xray 04/07/22 reported Moderate parenchymal opacities in both lower lung zones are recurrent or chronic. Angio CT of chest reported No evidence of pulmonary embolism. Extensive bronchiectasis and fibrotic changes of the lower lungs, right greater than left, progressed from prior study in 2019. There is superimposed patchy airspace consolidation of bilateral lower lobes, suspicious for superimposed acute pneumonia. Other stable chronic and incidental findings as above. Patient is on PO Prednisone, Brovanna/Budesonide aerosol treatments, Ceftriaxone, Zithromax . Famotidine, S/C Heparin. - Patient Problems (1) Acute and chronic respiratory failure Current Visit: Yes Status: Acute Plan to address problem: O2 2 litres via nasal canula. Continue PO prednisone Brovanna/Budesonide aerosol treatments. Continue S/C Heparin Continue Famotidine Continue ceftriaxone and Zithromax. (2) Bilateral pneumonia Current Visit: Yes Status: Acute Qualifiers: Pneumonia type: due to unspecified organism Lung location: unspecified part of lung Qualified Code(s): J18.9 - Pneumonia, unspecified organism Plan to address problem: Patient is on ceftriaxone and zithromax. (3) Pulmonary fibrosis Current Visit: Yes Status: Acute Plan to address problem: Recommend MAIKEL, Rheumatoid factor, CANCA and REBECCA level. Recommend deep breathing and coughing. (4) Acute kidney injury Current Visit: No Status: Acute Plan to address problem: Management as per nephrology. (5) Extrinsic asthma Current Visit: No Status: Acute Plan to address problem: O2 2 litres via nasal canula. Continue PO prednisone Brovanna/Budesonide aerosol treatments. Continue S/C Heparin Continue Famotidine Continue ceftriaxone and Zithromax. (6) Suspected COVID-19 virus infection Current Visit: No Status: Acute Plan to address problem: Driver virus PCR reported Negative. (7) Thalamic stroke Current Visit: No Status: Acute Plan to address problem: History of stroke. Management as per primary care and neurology. (8) Hypertension Current Visit: No Status: Chronic Plan to address problem: Management as per primary care. Subjective Date of service: 04/09/22 Interval history: 81-year-old female, past medical history of pulmonary fibrosis, COPD with oxygen dependence, diabetes mellitus presents to the emergency room today from the [facility] for evaluation of shortness of breath. Patient has been having shortness of breath, cough productive of some clear sputum over the last couple of hours. She denies any fever or chills, no chest pain. She however complains of some pain on the rib cage which is worse upon movement. She denies any fall or trauma to the chest or ribs.\Patient denies any lower extremity pain or swelling. Denies any headache or dizziness and no diaphoresis. Upon arrival in the emergency room patient was found to be tachycardic and hypertensive. She denies any sick contacts and no recent travel. Denies any contact with anyone with COVID-19. Patient is fully vaccinated against COVID-19. Work-up in the emergency room today, chest x-ray reveals bilateral pneumonia. Patient started on empiric IV antibiotics. Patient has no history of smoking, alcohol or drug abuse. 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 Allergic to Levaquin and aspirin. Patient weak. Resting on 2 litres O2. O2 saturation 95%. Patient says shortness of breath getting better. Denies chest pain or cough at this time. Patient afebrile. No leukocytosis. Blood pressure 134/72, Pulse 90, respiration 20. Chest xray 04/07/22 reported Moderate parenchymal opacities in both lower lung zones are recurrent or chronic. Angio CT of chest reported No evidence of pulmonary embolism. Extensive bronchiectasis and fibrotic changes of the lower lungs, right greater than left, progressed from prior study in 2019. There is superimposed patchy airspace consolidation of bilateral lower lobes, suspicious for superimposed acute pneumonia. Other stable chronic and incidental findings as above. Patient is on PO Prednisone, Brovanna/Budesonide aerosol treatments, Ceftriaxone, Zithromax . Famotidine, S/C Heparin. Objective Vital Signs - 12hr 04/08/22 04/08/22 04/08/22 21:54 21:55 22:07 Temperature 97.8 F Pulse Rate 97 H Pulse Rate [ 76 Bilateral] Respiratory 20 Rate Respiratory 18 Rate [Bilateral ] Blood Pressure 154/74 O2 Sat by Pulse 98 100 Oximetry 04/09/22 05:12 Temperature 98.1 F Pulse Rate Pulse Rate [ Bilateral] Respiratory 20 Rate Respiratory Rate [Bilateral ] Blood Pressure 147/64 O2 Sat by Pulse Oximetry Constitutional: alert, other (Mild shortness of breath at rest.) Eyes: non-icteric Neck: supple, no lymphadenopathy Ascultation: Bilateral: wheezes, rales, rhonchi Cardiovascular: regular rate and rhythm Gastrointestinal: normoactive bowel sounds, soft, non-tender Integumentary: normal Extremities: no cyanosis, no edema Neurologic: normal mental status, non-focal exam, pupils equal and round Psychiatric: mood appropriate, affect normal CBC and BMP: 04/10/22 05:56 04/10/22 05:56 ABG, PT/INR, D-dimer: PT/INR, D-dimer PT 13.2 Sec. (12.2-14.9) 04/07/22 17:46 INR 0.91 (0.87-1.13) 04/07/22 17:46 Abnormal lab findings: Abnormal Labs 04/07/22 04/07/22 04/07/22 17:46 17:46 20:40 MCH 27 L [place] % (Auto) 8.1 H Seg Neutrophils % Chloride Carbon Dioxide BUN 21 H Creatinine 1.4 H Glucose 320 H POC Glucose 315 H Total Protein 8.5 H 04/08/22 04/08/22 04/08/22 05:04 05:04 07:38 MCH 27 L [place] % (Auto) Seg Neutrophils % 72.3 H Chloride 96.7 L Carbon Dioxide 31 H BUN 26 H Creatinine 1.7 H Glucose 510 H* POC Glucose 438 H Total Protein 04/08/22 04/08/22 04/08/22 12:06 16:16 17:21 MCH [place] % (Auto) Seg Neutrophils % Chloride Carbon Dioxide BUN Creatinine Glucose 514 H* POC Glucose 418 H 518 H Total Protein 04/08/22 04/09/22 22:05 07:50 MCH [place] % (Auto) Seg Neutrophils % Chloride Carbon Dioxide BUN Creatinine Glucose POC Glucose 459 H 425 H Total Protein Chest x-ray: report reviewed, image reviewed Additional Studies: CHEST 1 VIEW 04/07/2022 5:38 PM INDICATION / CLINICAL INFORMATION: Shortness of breath. COMPARISON: 11/26/21. FINDINGS: SUPPORT DEVICES: None. HEART / MEDIASTINUM: Mild cardiomegaly is stable. LUNGS / PLEURA: There is moderate patchy parenchymal disease in both lower lung zones, right greater than left, minimally changed since the prior exam. No pneumothorax. ADDITIONAL FINDINGS: No significant additional findings. IMPRESSION: Moderate parenchymal opacities in both lower lung zones are recurrent or chronic. CT angio chest 04/07/22 INDICATION / CLINICAL INFORMATION: sob, hypoxia, chronic lung disease. TECHNIQUE: Axial CT images were obtained through the chest after injection of 100 cc of Omnipaque 350 IV contrast. 3 plane MIP and/or 3D reconstructions were produced. All CT scans at this location are performed using CT dose reduction for ALARA by means of automated exposure control. COMPARISON: CT of the chest from 03/03/2019. Same-day chest radiograph. FINDINGS: PULMONARY ARTERIES: No central or segmental pulmonary embolus. THORACIC AORTA: Mild atherosclerotic calcification without acute abnormality. HEART: Mild cardiac enlargement. No pericardial effusion. CORONARY ARTERY CALCIFICATION: Severe coronary artery calcifications. LYMPHADENOPATHY: Multiple calcified lymph nodes throughout the mediastinum and bilateral hilar regions noted. Prominent lymph nodes along the upper posterior mediastinum appear improved in size from prior CT from 2019. No axillary lymphadenopathy. LUNGS/PLEURA: Scattered subpleural reticulation with basilar predominant severe bronchiectasis, most pronounced in the right lower lobe. There is diffuse bronchial wall thickening. Patchy giancarlo bronchovascular nodules and mild airspace opacities in the right lower lobe. Mild patchy consolidation within the left lower lobe. No pleural effusion or pneumothorax. OTHER FINDINGS: None. UPPER ABDOMEN: No acute findings. SKELETAL SYSTEM: No acute osseous findings. IMPRESSION: 1. No evidence of pulmonary embolism. 2. Extensive bronchiectasis and fibrotic changes of the lower lungs, right gre ater than left, progressed from prior study in 2019. There is superimposed patchy airspace consolidation of bilateral lower lobes, suspicious for superimposed acute pneumonia. 3. Other stable chronic and incidental findings as above.
[2022-04-09] MEDS: allopurinoL 100 MG TAB PO SCH (10:17)
[2022-04-09] MEDS: CLOPIDOGREL 75 MG TAB PO SCH (10:17)
[2022-04-09] MEDS: atenoloL 50 MG TAB PO SCH (10:17)
[2022-04-09] MEDS: CALCITRIOL 0.5 MCG CAP PO SCH (10:17)
[2022-04-09] MEDS: FLUTICASONE PROPIONATE NASAL SPRAY 16 GM NS SCH (10:18)
--- NOTE | 2022-04-09 12:22 | Progress Note ---
Assessment and Plan Sepsis. Present on admission. Patient meets criteria given the tachypnea, tachycardia and diagnosis of pneumonia. Pneumonia Cont Abx Hyponatremia Corrected COPDoxygen dependent Can be discharged on 2 liters NCO2 Hypertension Cont antihypertensives Hyperglycemia Coverage Decreased steroids Acute kidney injury on CKD. Pulmonary fibrosis. Diabetes mellitus type 2 Possible discharge tomorrow Subjective Date of service: 04/09/22 Principal diagnosis: Pneumonia Interval history: 81-year-old female, past medical history of pulmonary fibrosis, COPD with oxygen dependence, diabetes mellitus presents to the emergency room on 04/07 from the [facility] for evaluation of shortness of breath. Patient has been having shortness of breath, cough productive of some clear sputum. Upon arrival in the emergency room patient was found to be slightly tachycardic and hypertensive. Chest x-ray revealed bilateral pneumonia. Hospital course: 04/08/2022. Continue IV antibiotics and follow-up COVID PCR. Await pulmonary evaluation continue sliding scale insulin and monitor Accu-Cheks. Nephrology consultation pending. 04/09/22 Decreased O2 to 2 liters On Home O2 at home --6 liters patient may be discharged on 2 liters or room air depending on resp assessment Instructed to do amb sats today and tomorrow on RA Objective - Constitutional Vitals: Vital Signs - 12hr 04/09/22 04/09/22 04/09/22 05:12 08:00 08:15 Temperature 98.1 F Pulse Rate Respiratory 20 Rate Blood Pressure 147/64 O2 Sat by Pulse 97 97 Oximetry 04/09/22 04/09/22 08:40 10:17 Temperature Pulse Rate 80 94 H Respiratory Rate Blood Pressure 142/90 125/58 O2 Sat by Pulse Oximetry General appearance: Present: no acute distress, well-nourished - EENT Eyes: PERRL, EOM intact ENT: hearing intact, clear oral mucosa Ears: bilateral: normal - Neck Neck: supple, normal ROM - Respiratory Respiratory effort: normal Respiratory: bilateral: CTA - Breasts Breasts: normal - Cardiovascular Heart rate: 78 Rhythm: regular Heart Sounds: Present: S1 & S2. Absent: gallop, rub Extremities: pulses intact, No edema, normal color, Full ROM - Gastrointestinal General gastrointestinal: Present: soft, non-tender, non-distended, normal bowel sounds - Genitourinary Female genitourinary: normal - Integumentary Integumentary: clear, warm, dry - Musculoskeletal Musculoskeletal: 1, strength equal bilaterally - Neurologic Neurologic: moves all extremities - Psychiatric Psychiatric: memory intact, appropriate mood/affect, intact judgment & insight - Labs CBC & Chem 7: 04/10/22 05:56 04/10/22 05:56 Labs: Abnormal lab results 04/08/22 04/08/22 04/08/22 Range/Units 16:16 17:21 22:05 Glucose 514 H* (65-100) mg/dL POC Glucose 518 H 459 H (70-105) mg/dL 04/09/22 04/09/22 Range/Units 07:50 11:40 Glucose (65-100) mg/dL POC Glucose 425 H 585 H (70-105) mg/dL HEART Score - HEART Score Troponin: Troponin T 0.013 ng/mL (0.00-0.029) 04/07/22 17:46
[2022-04-09] MEDS: INSULIN GLARGINE 100 UNITS/ML SUB-Q SCH (13:13)
[2022-04-09] MEDS: predniSONE 20 MG TAB PO SCH (13:14)
[2022-04-09] MEDS: ACETAMINOPHEN 325 MG TAB PO PRN (18:41)
[2022-04-09] MEDS: cefTRIAXone/NS 2 GM/100 ML 2 GM/100 ML BAG IV SCH (21:59)
[2022-04-09] MEDS: FAMOTIDINE 20 MG TAB PO SCH (22:00)
[2022-04-09] MEDS: AZITHROMYCIN 250 MG TAB PO SCH (22:00)
[2022-04-09] MEDS: SODIUM CHLORIDE 0.9% 1000 ML 1,000 ML IV SCH (22:01)
[2022-04-10] MEDS: HEPARIN 5,000 UNIT/1 ML VIAL SUB-Q SCH ×3 (05:11→22:34)
[2022-04-10 06:35] LABS: Basophils % (Auto) 0.1 % (0.0-1.8); Hematocrit 36.8 % (30.3-42.9); Hemoglobin 11.5 gm/dl (10.1-14.3); Lymphocytes # (Auto) 2.5 K/mm3 (1.2-5.4); Lymphocytes % (Auto) 22.3 % (13.4-35.0); Mean Corpuscular HGB Conc 31 % (30-34); Mean Corpuscular Volume 83 fl (79-97); Monocytes # (Auto) 0.7 K/mm3 (0.0-0.8); Monocytes % (Auto) 6.4 % (0.0-7.3); Platelet Count 321 K/mm3 (140-440); Red Blood Count 4.43 M/mm3 (3.65-5.03); Red Cell Distribution Width 15.4 % (13.2-15.2)
[2022-04-10 06:56] LABS: Alanine Aminotransferase 16 units/L (7-56); Albumin 3.9 g/dL (3.9-5); BUN/Creatinine Ratio 26; Blood Urea Nitrogen 54 mg/dL (7-17); Calcium 9.6 mg/dL (8.4-10.2); Hemolysis Index 7
[2022-04-10] MEDS: INSULIN LISPRO 100 UNIT/ML SUB-Q SCH ×4 (07:30→22:35)
[2022-04-10] MEDS: ARFORMOTEROL 15 MCG/2 ML NEBU IH SCH ×2 (07:49→20:41)
[2022-04-10] MEDS: BUDESONIDE 0.5 MG/2 ML NEBU IH SCH ×2 (07:49→20:41)
[2022-04-10] MEDS: cloNIDine 0.1 MG TAB PO SCH ×3 (08:00→21:33)
[2022-04-10] MEDS: allopurinoL 100 MG TAB PO SCH (09:49)
[2022-04-10] MEDS: CLOPIDOGREL 75 MG TAB PO SCH (09:49)
[2022-04-10] MEDS: atenoloL 50 MG TAB PO SCH (09:49)
[2022-04-10] MEDS: predniSONE 20 MG TAB PO SCH (09:49)
[2022-04-10] MEDS: FLUTICASONE PROPIONATE NASAL SPRAY 16 GM NS SCH (09:50)
[2022-04-10] MEDS: CALCITRIOL 0.5 MCG CAP PO SCH (09:51)
--- NOTE | 2022-04-10 10:55 | Progress Note ---
Assessment and Plan # Acute Kidney Injury: creatinine 1.5->1.7->2.1; suspect pre-renal injury from hyperglycemia as well as tubular injury in setting of sepsis, tachycardia. Suspect to have some level of CKD as well - PTH 96, likely secondary hyperparathyroidism of CKD - check urinalysis, urine protein/creaitnine to assist with chronicity - renal imaging ordered - avoid nephrotoxins - renally dose medications - consider biopsy if DAPHNE worsening with no clear etiology, check serologies to consider GN injury pending urinalysis - no immediate need for renal replacement therapy # Alkalosis: suspect due to respiratory, CO2 retention? # Sepsis, Pneumonia: care per primary # HTN: BP stable on current regimen # DM: sugars continue to run high # COPD, Pulmonary Fibrosis: pulmonary following Subjective Date of service: 04/10/22 Principal diagnosis: Pneumonia Interval history: Continues to feel well, denies any acute issues, denies dyspnea/edema. Notes good appetite. Notes good urination Objective - Exam Narrative Exam: General appearance: well-developed, well-nourished EENT: ATNC Neck: Present: neck supple Respiratory: Clear to Ascultation, Other (on NC) Heart: regular, S1S2 Gastrointestinal: Present: normoactive bowel sounds Integumentary: no rash, warm and dry Neurologic: no focal deficit, no asterixis - Vital Signs Vital signs: Vital Signs - 12hr 04/10/22 04/10/22 04/10/22 04:29 07:48 07:49 Temperature 97.6 F Pulse Rate 82 Pulse Rate [ 87 Posterior Bilateral Throughout] Respiratory 16 Rate Respiratory 20 Rate [Posterior Bilateral Throughout] Blood Pressure 141/80 Blood Pressure [Left] O2 Sat by Pulse 100 98 Oximetry 04/10/22 09:46 Temperature 98.0 F Pulse Rate 86 Pulse Rate [ Posterior Bilateral Throughout] Respiratory 20 Rate Respiratory Rate [Posterior Bilateral Throughout] Blood Pressure Blood Pressure 155/60 [Left] O2 Sat by Pulse Oximetry - Lab 04/10/22 05:56 04/10/22 05:56 Most recent lab results Calcium 9.6 mg/dL (8.4-10.2) 04/10/22 05:56 Medications & Allergies - Medications Allergies/Adverse Reactions: Allergies levofloxacin [From Levaquin] Allergy (Intermediate, Verified 11/27/21 11:29) Itching Causes patient to become jittery and itching with rash aspirin Allergy (Verified 11/27/21 11:29) Unknown Home Medications: Home Medications Medication Instructions Recorded Confirmed Last Taken Type Dulaglutide (Nf) [Trulicity (Nf)] 1.5 mg SUB-Q QWEEK 03/01/19 04/09/22 02/27/19 History Fluticasone/Salmeterol [Advair 1 each IH BID 03/01/19 04/09/22 Unknown History 500-50 Diskus] Mirtazapine [Remeron 30mg TAB] 30 mg PO DAILY 03/01/19 04/09/22 11/26/21 History Clopidogrel [Plavix] 75 mg PO QDAY #30 tablet 11/28/21 04/09/22 Unknown Rx Fluticasone [Flonase] 100 mcg NS QDAY #1 bottle 11/28/21 04/09/22 Unknown Rx Furosemide [Lasix TAB] 40 mg PO QDAY #30 tablet 11/28/21 04/09/22 Unknown Rx Insulin Aspart (Nf) [NovoLOG 100 10 unit SQ AC #1 vial 11/28/21 04/09/22 Unknown Rx UNITS/ML VIAL] Insulin Glargine [Lantus VIAL] 40 units SUB-Q QHS #2 vial 11/28/21 04/09/22 Unknown Rx Ipratropium/Albuterol Sulfate 1 ampul IH Q3H PRN #50 ampul.neb 11/28/21 04/09/22 Unknown Rx [DUONEB *Not for PRN Use*] Latanoprost 0.005% 1 drops OU QPM bottle 11/28/21 04/09/22 Unknown Rx Pantoprazole [Protonix TAB] 40 mg PO QDAY #30 tablet 11/28/21 04/09/22 Unknown Rx Potassium Chloride [K-Dur] 20 meq PO QDAY #30 11/28/21 04/09/22 Unknown Rx Prednisone [predniSONE 5 mg (6-Day 5 mg PO .TAPER #1 11/28/21 04/09/22 Unknown Rx Pack, 21 Tabs)] Rosuvastatin Calcium [Crestor] 10 mg PO QDAY #30 11/28/21 04/09/22 Unknown Rx allopurinoL [Zyloprim] 100 mg PO QDAY #30 tablet 11/28/21 04/09/22 Unknown Rx atenoloL [Tenormin] 50 mg PO QDAY #30 tablet 11/28/21 04/09/22 Unknown Rx calcitrioL [Rocaltrol] 0.5 mcg PO QDAY #30 capsule 11/28/21 04/09/22 Unknown Rx cloNIDine [Catapres] 0.1 mg PO TID #90 11/28/21 04/09/22 Unknown Rx levoFLOXacin [Levaquin] 750 mg PO QDAY #5 tablet 11/28/21 04/09/22 Unknown Rx traMADoL [Ultram 50 MG tab] 50 mg PO BID #20 11/28/21 04/09/22 Unknown Rx Active Medications: Generic Name Dose Route Start Last Admin Trade Name Freq PRN Reason Stop Dose Admin Acetaminophen 650 mg 04/07/22 23:14 04/09/22 18:41 Acetaminophen 325 Mg Tab PO 650 mg Q4H PRN Administration Pain MILD(1-3)/Fever >100.5/RUANO Allopurinol 100 mg 04/09/22 10:00 04/10/22 09:49 Allopurinol 100 Mg Tab PO 100 mg QDAY LESLEE Administration Arformoterol Tartrate 15 mcg 04/08/22 20:00 04/10/22 07:49 Arformoterol 15 Mcg/2 Ml Nebu IH 15 mcg Q12HRT LESLEE Administration Atenolol 50 mg 04/09/22 10:00 04/10/22 09:49 Atenolol 50 Mg Tab PO 50 mg QDAY LESLEE Administration Azithromycin 500 mg 04/08/22 22:00 04/09/22 22:00 Azithromycin 250 Mg Tab PO 04/11/22 22:01 500 mg QHS LESLEE Administration Budesonide 0.5 mg 04/08/22 20:00 04/10/22 07:49 Budesonide 0.5 Mg/2 Ml Nebu IH 0.5 mg Q12HRT LESLEE Administration Calcitriol 0.5 mcg 04/09/22 10:00 04/10/22 09:51 Calcitriol 0.5 Mcg Cap PO 0.5 mcg QDAY LESLEE Administration Clonidine HCl 0.1 mg 04/08/22 14:00 04/10/22 08:00 Clonidine 0.1 Mg Tab PO 0.1 mg TID LESLEE Administration Clopidogrel Bisulfate 75 mg 04/09/22 10:00 04/10/22 09:49 Clopidogrel 75 Mg Tab PO 75 mg QDAY LESLEE Administration Dextrose 50 ml 04/07/22 23:14 Dextrose 50% In Water (25gm) 50 Ml Syringe IV Q30MIN PRN Hypoglycemia Protocol Famotidine 20 mg 04/08/22 22:00 04/09/22 22:00 Famotidine 20 Mg Tab PO 20 mg QHS LESLEE Administration Fluticasone Propionate 100 mcg 04/09/22 10:00 04/10/22 09:50 Fluticasone Propionate Nasal [place] 16 Gm NS 100 mcg QDAY LESLEE Administration Heparin Sodium (Porcine) 5,000 unit 04/08/22 06:00 04/10/22 05:11 Heparin 5,000 Unit/1 Ml Vial SUB-Q 5,000 unit Q8HR LESLEE Administration Hydralazine HCl 10 mg 04/08/22 06:13 04/08/22 17:21 Hydralazine 20 Mg/1 Ml Inj IV 10 mg Q4HR PRN Administration Hypertension Sodium Chloride 1,000 mls @ 75 mls/hr 04/07/22 23:15 04/09/22 22:01 Nacl 0.9% 1000 Ml IV 75 mls/hr DIRECT LESLEE Administration Ceftriaxone Sodium 2 gm in 100 mls @ 200 mls/hr 04/08/22 21:00 04/09/22 21:59 Rocephin/Ns 2 Gm/100 Ml IV 200 mls/hr Q24H LESLEE Administration Protocol Insulin Glargine 30 units 04/09/22 14:00 04/09/22 13:13 Insulin Glargine 100 Units/Ml SUB-Q 30 units QPM LESLEE Administration Insulin Human Lispro 0 unit 04/09/22 12:45 04/10/22 07:30 Insulin Lispro 100 Unit/Ml SUB-Q 8 unit ACHS LESLEE Administration Protocol Magnesium Hydroxide 30 ml 04/07/22 23:14 04/10/22 05:15 Magnesium Hydroxide (Mom) Oral Liqd Udc PO 30 ml Q4H PRN Administration Constipation Morphine Sulfate 2 mg 04/07/22 23:14 Morphine 2 Mg/1 Ml Inj IV Q4H PRN Pain, Moderate (4-6) Morphine Sulfate 4 mg 04/07/22 23:14 Morphine 4 Mg/1 Ml Inj IV Q4H PRN Pain , Severe (7-10) Ondansetron HCl 4 mg 04/07/22 23:14 Ondansetron 4 Mg/2 Ml Inj IV Q8H PRN Nausea And Vomiting Prednisone 20 mg 04/09/22 13:00 04/10/22 09:49 Prednisone 20 Mg Tab PO 20 mg QDAY LESLEE Administration Sodium Chloride 10 ml 04/08/22 10:00 04/10/22 10:00 Sodium Chloride 0.9% 10 Ml Flush Syringe IV 10 ml BID LESLEE Administration Sodium Chloride 10 ml 04/07/22 23:14 04/08/22 06:28 Sodium Chloride 0.9% 10 Ml Flush Syringe IV 10 ml PRN PRN Administration LINE FLUSH
--- NOTE | 2022-04-10 11:55 | Ultrasound Report ---
ULTRASOUND RENAL INDICATION / CLINICAL INFORMATION: DAPHNE. COMPARISON: 12/13/2017 FINDINGS: RIGHT KIDNEY: Size (in cm): 9.3 - Echogenicity: Normal. - Parenchymal Thickness: Normal. - Hydronephrosis: None. - Cyst or mass: No significant abnormality. - Stones: None seen. LEFT KIDNEY: Size (in cm): 9.5 - Echogenicity: Normal. - Parenchymal Thickness: Normal. - Hydronephrosis: None. - Cyst or mass: No significant abnormality. - Stones: None seen. URINARY BLADDER: No significant abnormality. FREE FLUID: None. ADDITIONAL FINDINGS: None. IMPRESSION: 1. No significant abnormality. Signer Name: Anatoly Platt MD Signed: 04/10/2022 11:51 AM Workstation Name: [id number]
[2022-04-10] MEDS ORDERED: DEXTROSE 50% IN WATER (25GM) 50 ML SYRINGE IV PRN (12:01)
--- NOTE | 2022-04-10 12:01 | Progress Note ---
Assessment and Plan Assessment and plan: 81-year-old female, past medical history of pulmonary fibrosis, COPD with oxygen dependence, diabetes mellitus presents to the emergency room on 04/07 from the [facility] for evaluation of shortness of breath. Patient has been having shortness of breath, cough productive of some clear sputum. Upon arrival in the emergency room patient was found to be slightly tachycardic and hypertensive. Chest x-ray revealed bilateral pneumonia. Sepsis. Present on admission. Patient meets criteria given the tachypnea, tachycardia and diagnosis of pneumonia. Pneumonia Hyponatremia COPDoxygen dependent Hypertension Hyperglycemia Acute kidney injury on CKD. Pulmonary fibrosis. Diabetes mellitus type 2 Hospital course: 04/08/2022. Continue IV antibiotics and follow-up COVID PCR. Await pulmonary evaluation continue sliding scale insulin and monitor Accu-Cheks. Nephrology consultation pending. 04/09/2022. Decreased O2 to 2 liters. On Home O2 at home --6 liters. patient may be discharged on 2 liters or room air depending on resp assessment Instructed to do amb sats today and tomorrow on RA 04/10/2022. Patient is O2 saturation and respiratory status back to baseline. However given increase in creatinine we will continue to monitor for the next 24-48-hour to assess renal function. Nephrology suspects pre-renal injury from hyperglycemia as well as tubular injury in setting of sepsis, tachycardia. Patient likely has a component of CKD. Follow-up renal ultrasound, urinalysis, urine protein/creaitnine to assist with chronicity. Elevated BG secondary to steroids. Continue Lantus insulin and add 7030 insulin twice daily History Interval history: No new issues overnight Hospitalist Physical - Constitutional Vitals: Temp Pulse Resp BP Pulse Ox 98.0 F 86 20 155/60 98 04/10/22 09:46 04/10/22 09:46 04/10/22 09:46 04/10/22 09:46 04/10/22 07:48 General appearance: Present: no acute distress, well-nourished - EENT Eyes: Present: PERRL, EOM intact ENT: hearing intact, clear oral mucosa, dentition normal - Neck Neck: Present: supple, normal ROM - Respiratory Respiratory effort: normal Respiratory: bilateral: CTA - Cardiovascular Rhythm: regular Heart Sounds: Present: S1 & S2. Absent: gallop, rub - Extremities Extremities: no ischemia, No edema, Full ROM - Abdominal General gastrointestinal: soft, non-tender, non-distended, normal bowel sounds - Integumentary Integumentary: Present: clear, warm, dry - Neurologic Neurologic: CNII-XII intact, moves all extremities HEART Score - HEART Score Troponin: Troponin T 0.013 ng/mL (0.00-0.029) 04/07/22 17:46 Results - Labs CBC & Chem 7: 04/10/22 05:56 04/10/22 05:56 Labs: Laboratory Last Values WBC 11.0 K/mm3 (4.5-11.0) 04/10/22 05:56 RBC 4.43 M/mm3 (3.65-5.03) 04/10/22 05:56 Hgb 11.5 gm/dl (10.1-14.3) 04/10/22 05:56 Hct 36.8 % (30.3-42.9) 04/10/22 05:56 MCV 83 fl (79-97) 04/10/22 05:56 MCH 26 pg (28-32) L 04/10/22 05:56 MCHC 31 % (30-34) 04/10/22 05:56 RDW 15.4 % (13.2-15.2) H 04/10/22 05:56 Plt Count 321 K/mm3 (140-440) 04/10/22 05:56 Lymph % (Auto) 22.3 % (13.4-35.0) 04/10/22 05:56 [place] % (Auto) 6.4 % (0.0-7.3) 04/10/22 05:56 Eos % (Auto) 0.0 % (0.0-4.3) 04/10/22 05:56 Baso % (Auto) 0.1 % (0.0-1.8) 04/10/22 05:56 Lymph # (Auto) 2.5 K/mm3 (1.2-5.4) 04/10/22 05:56 [place] # (Auto) 0.7 K/mm3 (0.0-0.8) 04/10/22 05:56 Eos # (Auto) 0.0 K/mm3 (0.0-0.4) 04/10/22 05:56 Baso # (Auto) 0.0 K/mm3 (0.0-0.1) 04/10/22 05:56 Seg Neutrophils % 71.2 % (40.0-70.0) H 04/10/22 05:56 Seg Neutrophils # 7.9 K/mm3 (1.8-7.7) H 04/10/22 05:56 PT 13.2 Sec. (12.2-14.9) 04/07/22 17:46 INR 0.91 (0.87-1.13) 04/07/22 17:46 APTT 32.1 Sec. (24.2-36.6) 04/07/22 17:46 Sodium 135 mmol/L (137-145) L 04/10/22 05:56 Potassium 4.3 mmol/L (3.6-5.0) 04/10/22 05:56 Chloride 98.0 mmol/L (98-107) 04/10/22 05:56 Carbon Dioxide 27 mmol/L (22-30) 04/10/22 05:56 Anion Gap 14 mmol/L 04/10/22 05:56 BUN 54 mg/dL (7-17) H 04/10/22 05:56 Creatinine 2.1 mg/dL (0.6-1.2) H 04/10/22 05:56 Estimated GFR 27 ml/min 04/10/22 05:56 BUN/Creatinine Ratio 26 % 04/10/22 05:56 Glucose 411 mg/dL (65-100) H 04/10/22 05:56 POC Glucose 347 mg/dL (70-105) H 04/10/22 07:59 Calcium 9.6 mg/dL (8.4-10.2) 04/10/22 05:56 Total Bilirubin < 0.20 mg/dL (0.1-1.2) 04/10/22 05:56 AST 19 units/L (5-40) 04/10/22 05:56 ALT 16 units/L (7-56) 04/10/22 05:56 Alkaline Phosphatase 94 units/L (35-129) 04/10/22 05:56 Troponin T 0.013 ng/mL (0.00-0.029) 04/07/22 17:46 NT-Pro-B Natriuret Pep 229.6 pg/mL (0-900) 04/07/22 17:46 Total Protein 7.8 g/dL (6.3-8.2) 04/10/22 05:56 Albumin 3.9 g/dL (3.9-5) 04/10/22 05:56 Albumin/Globulin Ratio 1.0 % 04/10/22 05:56 TSH 0.913 mlU/mL (0.270-4.200) 04/07/22 17:46 Free T4 0.94 ng/dL (0.76-1.46) 04/07/22 17:46 PTH Intact 96.48 pg/mL (15-65) H 04/10/22 05:56 Coronavirus (PCR) Negative (Negative) 04/08/22 Unknown Microbiology: Microbiology 04/07/22 21:12 Peripheral/Venous Blood Culture - Preliminary NO GROWTH AFTER 48 HOURS 04/07/22 21:12 Peripheral/Venous Blood Culture - Preliminary Diphtheroids Nuñez/IV: Voiding Method Toilet Active Medications - Current Medications Current Medications: Generic Name Dose Route Start Last Admin Trade Name Freq PRN Reason Stop Dose Admin Acetaminophen 650 mg 04/07/22 23:14 04/09/22 18:41 Acetaminophen 325 Mg Tab PO 650 mg Q4H PRN Administration Pain MILD(1-3)/Fever >100.5/RUANO Allopurinol 100 mg 04/09/22 10:00 04/10/22 09:49 Allopurinol 100 Mg Tab PO 100 mg QDAY LESLEE Administration Arformoterol Tartrate 15 mcg 04/08/22 20:00 04/10/22 07:49 Arformoterol 15 Mcg/2 Ml Nebu IH 15 mcg Q12HRT LESLEE Administration Atenolol 50 mg 04/09/22 10:00 04/10/22 09:49 Atenolol 50 Mg Tab PO 50 mg QDAY LESLEE Administration Azithromycin 500 mg 04/08/22 22:00 04/09/22 22:00 Azithromycin 250 Mg Tab PO 04/11/22 22:01 500 mg QHS LESLEE Administration Budesonide 0.5 mg 04/08/22 20:00 04/10/22 07:49 Budesonide 0.5 Mg/2 Ml Nebu IH 0.5 mg Q12HRT LESLEE Administration Calcitriol 0.5 mcg 04/09/22 10:00 04/10/22 09:51 Calcitriol 0.5 Mcg Cap PO 0.5 mcg QDAY LESLEE Administration Clonidine HCl 0.1 mg 04/08/22 14:00 04/10/22 08:00 Clonidine 0.1 Mg Tab PO 0.1 mg TID LESLEE Administration Clopidogrel Bisulfate 75 mg 04/09/22 10:00 04/10/22 09:49 Clopidogrel 75 Mg Tab PO 75 mg QDAY LESLEE Administration Dextrose 50 ml 04/07/22 23:14 Dextrose 50% In Water (25gm) 50 Ml Syringe IV Q30MIN PRN Hypoglycemia Protocol Famotidine 20 mg 04/08/22 22:00 04/09/22 22:00 Famotidine 20 Mg Tab PO 20 mg QHS LESLEE Administration Fluticasone Propionate 100 mcg 04/09/22 10:00 04/10/22 09:50 Fluticasone Propionate Nasal [place] 16 Gm NS 100 mcg QDAY LESLEE Administration Heparin Sodium (Porcine) 5,000 unit 04/08/22 06:00 04/10/22 05:11 Heparin 5,000 Unit/1 Ml Vial SUB-Q 5,000 unit Q8HR LESLEE Administration Hydralazine HCl 10 mg 04/08/22 06:13 04/08/22 17:21 Hydralazine 20 Mg/1 Ml Inj IV 10 mg Q4HR PRN Administration Hypertension Sodium Chloride 1,000 mls @ 75 mls/hr 04/07/22 23:15 04/09/22 22:01 Nacl 0.9% 1000 Ml IV 75 mls/hr DIRECT LESLEE Administration Ceftriaxone Sodium 2 gm in 100 mls @ 200 mls/hr 04/08/22 21:00 04/09/22 21:59 Rocephin/Ns 2 Gm/100 Ml IV 200 mls/hr Q24H LESLEE Administration Protocol Insulin Glargine 30 units 04/09/22 14:00 04/09/22 13:13 Insulin Glargine 100 Units/Ml SUB-Q 30 units QPM LESLEE Administration Insulin Human Lispro 0 unit 04/09/22 12:45 04/10/22 07:30 Insulin Lispro 100 Unit/Ml SUB-Q 8 unit ACHS LESLEE Administration Protocol Magnesium Hydroxide 30 ml 04/07/22 23:14 04/10/22 05:15 Magnesium Hydroxide (Mom) Oral Liqd Udc PO 30 ml Q4H PRN Administration Constipation Morphine Sulfate 2 mg 04/07/22 23:14 Morphine 2 Mg/1 Ml Inj IV Q4H PRN Pain, Moderate (4-6) Morphine Sulfate 4 mg 04/07/22 23:14 Morphine 4 Mg/1 Ml Inj IV Q4H PRN Pain , Severe (7-10) Ondansetron HCl 4 mg 04/07/22 23:14 Ondansetron 4 Mg/2 Ml Inj IV Q8H PRN Nausea And Vomiting Prednisone 20 mg 04/09/22 13:00 04/10/22 09:49 Prednisone 20 Mg Tab PO 20 mg QDAY LESLEE Administration Sodium Chloride 10 ml 04/08/22 10:00 04/10/22 10:00 Sodium Chloride 0.9% 10 Ml Flush Syringe IV 10 ml BID LESLEE Administration Sodium Chloride 10 ml 04/07/22 23:14 04/08/22 06:28 Sodium Chloride 0.9% 10 Ml Flush Syringe IV 10 ml PRN PRN Administration LINE FLUSH Nutrition/Malnutrition Assess - Dietary Evaluation Nutrition/Malnutrition Findings: Nutrition Notes Start: 04/08/22 15:51 Freq: Status: Active Protocol: Document 04/08/22 15:51 DARIN (Rec: 04/08/22 15:59 DARIN [email or web address]) Nutrition Notes Need for Assessment generated from: MD Order,Education Initial or Follow up Brief Note Current Diagnosis Acute Kidney Injury,CKD(stage I-IV),COPD,Diabetes, Hypertension,Respiratory Failure Other Pertinent Diagnosis Pulmonary Fibrosis, Pneumonia, Hyperglycemia. Current Diet Cardiac/Consistent Carbohydrates Diet (since B ). Height 5 ft 2 in Weight 77.1 kg [place] Body Weight (kg) 50.00 BMI 31.1 Intake Prior to Admission Good Weight change and time frame Pt denies having loss body weight [employer]. Weight Status Obese Subjective/Other Information RD consult for nutrition education assessment. Pt's PO intake of meals has been Good (100%), according to ADL notes. Pt is on Nasal Cannula, O2 saturation @ 98%, according to Physical Assessment History notes. Pt still in critical condition , not a candidate for Nutrition Education at the time, will assess feasibility on F/U. Percent of energy/protein needs met: Prescribed Cardiac/Consistent Carbohydrates Diet provides for energy/protein needs (1, 977 Kcal/86 g) during LOS. Nutrition Intervention Follow-Up By: 04/15/22 Additional Comments Nutrition education will be provided at F/U, if feasible. Continue monitoring food tolerance, %PO intake of meals , and BM.
[2022-04-10 13:14] LABS: ABG Base Excess 1.1 mmol/L (-2.0-3.0); ABG HCO3 26.3 mmol/L (20.0-26.0); ABG PCO2 43.6 mm Hg; ABG PH 7.398 pH Units (7.350-7.450); ABG PO2 49.1 mm Hg (80.0-90.0)
[2022-04-10 13:41] LABS: ABG Methemoglobin 0.5 % (0.0-1.5)
[2022-04-10] MEDS: INSULIN NPH/REGULAR 70/30 INJ SUB-Q SCH (17:54)
--- NOTE | 2022-04-10 18:09 | Progress Note ---
Assessment and Plan 81-year-old female, past medical history of pulmonary fibrosis, COPD with oxygen dependence, diabetes mellitus presents to the emergency room today from the [facility] for evaluation of shortness of breath. Patient has been having shortness of breath, cough productive of some clear sputum over the last couple of hours. She denies any fever or chills, no chest pain. She however complains of some pain on the rib cage which is worse upon movement. She denies any fall or trauma to the chest or ribs.\Patient denies any lower extremity pain or swelling. Denies any headache or dizziness and no diaphoresis. Upon arrival in the emergency room patient was found to be tachycardic and hypertensive. She denies any sick contacts and no recent travel. Denies any contact with anyone with COVID-19. Patient is fully vaccinated against COVID-19. Work-up in the emergency room today, chest x-ray reveals bilateral pneumonia. Patient started on empiric IV antibiotics. Patient has no history of smoking, alcohol or drug abuse. Patient weak. Resting on 2 litres O2. O2 saturation 98%. Patient says shortness of breath getting better. Denies chest pain or cough at this time. Patient afebrile. No leukocytosis. Blood pressure 155/60, Pulse 87, respiration 20. Chest xray 04/07/22 reported Moderate parenchymal opacities in both lower lung zones are recurrent or chronic. Angio CT of chest reported No evidence of pulmonary embolism. Extensive bronchiectasis and fibrotic changes of the lower lungs, right greater than left, progressed from prior study in 2019. There is superimposed patchy airspace consolidation of bilateral lower lobes, suspicious for superimposed acute pneumonia. Other stable chronic and incidental findings as above. Patient is on PO Prednisone, Brovanna/Budesonide aerosol treatments, Ceftriaxone , Zithromax . Famotidine, S/C Heparin. - Patient Problems (1) Acute and chronic respiratory failure Current Visit: Yes Status: Acute Plan to address problem: O2 2 litres via nasal canula. Continue PO prednisone Brovanna/Budesonide aerosol treatments. Continue S/C Heparin Continue Famotidine Continue ceftriaxone and Zithromax. (2) Bilateral pneumonia Current Visit: Yes Status: Acute Qualifiers: Pneumonia type: due to unspecified organism Lung location: unspecified part of lung Qualified Code(s): J18.9 - Pneumonia, unspecified organism Plan to address problem: Patient is on ceftriaxone and zithromax. (3) Pulmonary fibrosis Current Visit: Yes Status: Acute Plan to address problem: Recommend MAIKEL, Rheumatoid factor, CANCA and REBECCA level. Recommend deep breathing and coughing. (4) Acute kidney injury Current Visit: No Status: Acute Plan to address problem: Management as per nephrology. (5) Extrinsic asthma Current Visit: No Status: Acute Plan to address problem: O2 2 litres via nasal canula. Continue PO prednisone Brovanna/Budesonide aerosol treatments. Continue S/C Heparin Continue Famotidine Continue ceftriaxone and Zithromax. (6) Suspected COVID-19 virus infection Current Visit: No Status: Acute Plan to address problem: Driver virus PCR reported Negative. (7) Thalamic stroke Current Visit: No Status: Acute Plan to address problem: History of stroke. Management as per primary care and neurology. (8) Hypertension Current Visit: No Status: Chronic Plan to address problem: Management as per primary care. Subjective Date of service: 04/10/22 Principal diagnosis: Pneumonia Interval history: 81-year-old female, past medical history of pulmonary fibrosis, COPD with oxygen dependence, diabetes mellitus presents to the emergency room today from the [facility] for evaluation of shortness of breath. Patient has been having shortness of breath, cough productive of some clear sputum over the last couple of hours. She denies any fever or chills, no chest pain. She however complains of some pain on the rib cage which is worse upon movement. She denies any fall or trauma to the chest or ribs.\Patient denies any lower extremity pain or swelling. Denies any headache or dizziness and no diaphoresis. Upon arrival in the emergency room patient was found to be tachycardic and hypertensive. She denies any sick contacts and no recent travel. Denies any contact with anyone with COVID-19. Patient is fully vaccinated against COVID-19. Work-up in the emergency room today, chest x-ray reveals bilateral pneumonia. Patient started on empiric IV antibiotics. Patient has no history of smoking, alcohol or drug abuse. Patient weak. Resting on 2 litres O2. O2 saturation 98%. Patient says shortness of breath getting better. Denies chest pain or cough at this time. Patient afebrile. No leukocytosis. Blood pressure 155/60, Pulse 87, respiration 20. Chest xray 04/07/22 reported Moderate parenchymal opacities in both lower lung zones are recurrent or chronic. Angio CT of chest reported No evidence of pulmonary embolism. Extensive bronchiectasis and fibrotic changes of the lower lungs, right greater than left, progressed from prior study in 2019. There is superimposed patchy airspace con solidation of bilateral lower lobes, suspicious for superimposed acute pneumonia. Other stable chronic and incidental findings as above. Patient is on PO Prednisone, Brovanna/Budesonide aerosol treatments, Ceftriaxone, Zithromax . Famotidine, S/C Heparin. Objective Vital Signs - 12hr 04/10/22 04/10/22 04/10/22 07:48 07:49 09:46 Temperature 98.0 F Pulse Rate 86 Pulse Rate [ 87 Posterior Bilateral Throughout] Respiratory 20 Rate Respiratory 20 Rate [Posterior Bilateral Throughout] Blood Pressure 155/60 [Left] O2 Sat by Pulse 98 Oximetry Constitutional: alert, other (Mild shortness of breath at rest.) Eyes: non-icteric Neck: supple, no lymphadenopathy Ascultation: Bilateral: wheezes, rales, rhonchi Cardiovascular: regular rate and rhythm Gastrointestinal: normoactive bowel sounds, soft, non-tender Integumentary: normal Extremities: no cyanosis, no edema Neurologic: normal mental status, non-focal exam, pupils equal and round Psychiatric: mood appropriate, affect normal CBC and BMP: 04/10/22 05:56 04/10/22 05:56 ABG, PT/INR, D-dimer: ABG ABG pH 7.398 pH Units (7.350-7.450) 04/10/22 13:00 ABG pCO2 43.6 mm Hg 04/10/22 13:00 ABG pO2 49.1 mm Hg (80.0-90.0) L 04/10/22 13:00 ABG O2 Saturation 89.0 % (95.0-99.0) L 04/10/22 13:00 PT/INR, D-dimer PT 13.2 Sec. (12.2-14.9) 04/07/22 17:46 INR 0.91 (0.87-1.13) 04/07/22 17:46 Abnormal lab findings: Abnormal Labs 04/07/22 04/07/22 04/07/22 17:46 17:46 20:40 MCH 27 L RDW [place] % (Auto) 8.1 H Seg Neutrophils % Seg Neutrophils # ABG pO2 ABG HCO3 ABG O2 Saturation ABG Hemoglobin Oxyhemoglobin Sodium Chloride Carbon Dioxide BUN 21 H Creatinine 1.4 H Glucose 320 H POC Glucose 315 H Total Protein 8.5 H PTH Intact 04/08/22 04/08/22 04/08/22 05:04 05:04 07:38 MCH 27 L RDW [place] % (Auto) Seg Neutrophils % 72.3 H Seg Neutrophils # ABG pO2 ABG HCO3 ABG O2 Saturation ABG Hemoglobin Oxyhemoglobin Sodium Chloride 96.7 L Carbon Dioxide 31 H BUN 26 H Creatinine 1.7 H Glucose 510 H* POC Glucose 438 H Total Protein PTH Intact 04/08/22 04/08/22 04/08/22 12:06 16:16 17:21 MCH RDW [place] % (Auto) Seg Neutrophils % Seg Neutrophils # ABG pO2 ABG HCO3 ABG O2 Saturation ABG Hemoglobin Oxyhemoglobin Sodium Chloride Carbon Dioxide BUN Creatinine Glucose 514 H* POC Glucose 418 H 518 H Total Protein PTH Intact 04/08/22 04/09/22 04/09/22 22:05 07:50 11:40 MCH RDW [place] % (Auto) Seg Neutrophils % Seg Neutrophils # ABG pO2 ABG HCO3 ABG O2 Saturation ABG Hemoglobin Oxyhemoglobin Sodium Chloride Carbon Dioxide BUN Creatinine Glucose POC Glucose 459 H 425 H 585 H Total Protein PTH Intact 04/09/22 04/09/22 04/10/22 16:10 21:46 05:56 MCH 26 L RDW 15.4 H [place] % (Auto) Seg Neutrophils % 71.2 H Seg Neutrophils # 7.9 H ABG pO2 ABG HCO3 ABG O2 Saturation ABG Hemoglobin Oxyhemoglobin Sodium Chloride Carbon Dioxide BUN Creatinine Glucose POC Glucose 549 H 496 H Total Protein PTH Intact 04/10/22 04/10/22 04/10/22 05:56 05:56 07:59 MCH RDW [place] % (Auto) Seg Neutrophils % Seg Neutrophils # ABG pO2 ABG HCO3 ABG O2 Saturation ABG Hemoglobin Oxyhemoglobin Sodium 135 L Chloride Carbon Dioxide BUN 54 H Creatinine 2.1 H Glucose 411 H POC Glucose 347 H Total Protein PTH Intact 96.48 H 04/10/22 04/10/22 04/10/22 12:21 13:00 16:40 MCH RDW [place] % (Auto) Seg Neutrophils % Seg Neutrophils # ABG pO2 49.1 L ABG HCO3 26.3 H ABG O2 Saturation 89.0 L ABG Hemoglobin 10.5 L Oxyhemoglobin 87.5 L Sodium Chloride Carbon Dioxide BUN Creatinine Glucose POC Glucose 388 H 413 H Total Protein PTH Intact
[2022-04-10] MEDS: INSULIN GLARGINE 100 UNITS/ML SUB-Q SCH (18:18)
--- NOTE | 2022-04-10 18:47 | Electrocardiograph Report ---
[facility] Test Date: 2022-04-07 Test Time: 17:07:28 Pat Name: NORMA SEYMOUR Department: Room: A383 Gender: F Director Of Quality Improvement: NURSE : 1940 Requested By: JOSIE MELGAR Order Number: [id number] Reading MD: Jeff Mendoza Measurements Intervals [place] Rate: 120 P: 74 DE: 150 QRS: 4 QRSD: 80 T: 56 QT: 337 QTc: 477 Interpretive Statements Sinus tachycardia Probable left atrial enlargement Compared to ECG 11/27/2021 11:39:39 Sinus rate has increased PVCs are no longer evident Electronically Signed On 04-10-2022 18:47:39 EDT by Jeff Mendoza
[2022-04-10] MEDS: cefTRIAXone/NS 2 GM/100 ML 2 GM/100 ML BAG IV SCH (21:33)
[2022-04-10] MEDS: FAMOTIDINE 20 MG TAB PO SCH (22:34)
[2022-04-10] MEDS: AZITHROMYCIN 250 MG TAB PO SCH (22:34)
[2022-04-11] MEDS: HEPARIN 5,000 UNIT/1 ML VIAL SUB-Q SCH (06:00)
[2022-04-11 06:23] LABS: Calcium 9.2 mg/dL (8.4-10.2)
[2022-04-11] MEDS: SODIUM CHLORIDE 0.9% 1000 ML 1,000 ML IV SCH (06:40)
[2022-04-11] MEDS: INSULIN LISPRO 100 UNIT/ML SUB-Q SCH (07:30)
[2022-04-11] MEDS: INSULIN NPH/REGULAR 70/30 INJ SUB-Q SCH (08:00)
[2022-04-11] MEDS: BUDESONIDE 0.5 MG/2 ML NEBU IH SCH (08:35)
[2022-04-11] MEDS: ARFORMOTEROL 15 MCG/2 ML NEBU IH SCH (08:35)
[2022-04-11] MEDS ORDERED: IPRATROPIUM/ALBUTEROL SULFATE 3 ML AMPUL.NEB IH PRN (08:42)
[2022-04-11] MEDS ORDERED: POTASSIUM CHLORIDE ER 20 MEQ TAB PO SCH (10:00)
[2022-04-11] MEDS ORDERED: MIRTAZAPINE 30 MG TAB PO SCH (10:00)
[2022-04-11] MEDS ORDERED: PANTOPRAZOLE 40 MG TAB PO SCH (10:00)
[2022-04-11] MEDS ORDERED: NON-FORMULARY EACH (Rosuvastatin Calcium [Crestor] 10 MG Tablet) PO SCH (10:00)
[2022-04-11] MEDS ORDERED: FUROSEMIDE 40 MG TAB PO SCH (10:00)
[2022-04-11] MEDS ORDERED: traMADol 50 MG TAB PO SCH (10:00)
[2022-04-11] MEDS: allopurinoL 100 MG TAB PO SCH (10:11)
[2022-04-11] MEDS: predniSONE 20 MG TAB PO SCH ×2 (10:11→10:12)
[2022-04-11] MEDS: atenoloL 50 MG TAB PO SCH (10:12)
[2022-04-11] MEDS: CLOPIDOGREL 75 MG TAB PO SCH (10:12)
[2022-04-11] MEDS: cloNIDine 0.1 MG TAB PO SCH (10:12)
[2022-04-11] MEDS: CALCITRIOL 0.5 MCG CAP PO SCH (10:13)
[2022-04-11] MEDS: FLUTICASONE PROPIONATE NASAL SPRAY 16 GM NS SCH (10:14)
[2022-04-11 10:30] VITALS: BP 126/72
[2022-04-11] MEDS ORDERED: INSULIN LISPRO 100 UNIT/ML SUB-Q SCH (11:30)
[2022-04-11] MEDS ORDERED: NON-FORMULARY EACH (Insulin Aspart (Nf) 100 UNIT/ML Units) SQ SCH (11:30)
[2022-04-11] MEDS ORDERED: ALBUTEROL 2.5 MG/3 ML NEBU IH PRN (12:00)
--- NOTE | 2022-04-11 12:27 | Discharge Summary ---
Providers - Providers Date of Admission: 04/07/22 23:14 Date of discharge: 04/11/22 Attending physician: ERICA JHAVERI 04/07/22 21:00 Consult to Physician [CONS] Urgent Comment: Consulting Provider: JEANNINE COLBY Physician Instructions: Reason For Exam: Bilateral pneumonia, pulm fibrosis, 04/07/22 23:14 Consult to Dietitian/Nutrition [CONS] Routine Physician Instructions: Reason For Exam: Reason for Consult: Diet education 04/08/22 08:06 Consult to Physician [CONS] Urgent Comment: Consulting Provider: CANDICE AMAYA Physician Instructions: Reason For Exam: Chronic renal failure Primary care physician: SERVICE CONTROL OPERATOR Hospitalization Reason for admission: PNA Condition: Stable Hospital course: 81-year-old female, past medical history of pulmonary fibrosis, COPD with oxygen dependence, diabetes mellitus presents to the emergency room on 04/07 from the front office manager clinic for evaluation of shortness of breath. Patient has been having shortness of breath, cough productive of some clear sputum. Upon arrival in the emergency room patient was found to be slightly tachycardic and hypertensive. Chest x-ray revealed bilateral pneumonia. The patient was admitted with diagnosis below: Sepsis. Present on admission. Patient meets criteria given the tachypnea, tachycardia and diagnosis of pneumonia. Pneumonia Hyponatremia COPDoxygen dependent Hypertension Hyperglycemia Acute kidney injury on CKD. Pulmonary fibrosis. Diabetes mellitus type 2 Hospital course: 04/08/2022. Continue IV antibiotics and follow-up COVID PCR. Await pulmonary evaluation continue sliding scale insulin and monitor Accu-Cheks. Nephrology consultation pending. 04/09/2022. Decreased O2 to 2 liters. On Home O2 at home --6 liters. patient may be discharged on 2 liters or room air depending on resp assessment Instructed to do amb sats today and tomorrow on RA 04/10/2022. Patient is O2 saturation and respiratory status back to baseline. However given increase in creatinine we will continue to monitor for the next 24-48-hour to assess renal function. Nephrology suspects pre-renal injury from hyperglycemia as well as tubular injury in setting of sepsis, tachycardia. Patient likely has a component of CKD. Follow-up renal ultrasound, urinalysis, urine protein/creaitnine to assist with chronicity. Elevated BG secondary to steroids. Continue Lantus insulin and add 7030 insulin twice daily. 04/11/2022. Patient's creatinine stabilized at 2.1. Patient is satting 99% on 2 L with nasal cannula. Renal ultrasound was negative for any obstruction or any other findings. The patient is felt to have received maximal hospital benefit and is back to baseline respiratory status with pneumonia resolved. Dedicated discharge time 35 minutes Disposition: HOME / SELF CARE / HOMELESS Final Discharge Diagnosis (Prints w/discharge instructions): Sepsis. Present on admission. Patient meets criteria given the tachypnea, tachycardia and diagnosis of pneumonia. Pneumonia. Hyponatremia. COPDoxygen dependent. Hypertension. Hyperglycemia. Acute kidney injury on CKD. Pulmonary fibrosis. Diabetes mellitus type 2 Core Measure Documentation - Palliative Care Palliative Care/ Comfort Measures: Not Applicable - Core Measures Any of the following diagnoses?: none Exam - Constitutional Vitals: Temp Pulse Resp BP Pulse Ox 97.8 F 80 20 126/72 98 04/11/22 10:28 04/11/22 10:28 04/11/22 10:28 04/11/22 10:28 04/11/22 10:28 General appearance: Present: no acute distress, well-nourished - EENT Eyes: Present: PERRL ENT: hearing intact, clear oral mucosa - Neck Neck: Present: supple, normal ROM - Respiratory Respiratory effort: normal Respiratory: bilateral: CTA - Cardiovascular Heart Sounds: Present: S1 & S2. Absent: rub, click - Extremities Extremities: pulses symmetrical, No edema Peripheral Pulses: within normal limits - Abdominal General gastrointestinal: Present: soft, non-tender, non-distended, normal bowel sounds Female genitourinary: Present: normal - Integumentary Integumentary: Present: clear, warm, dry - Musculoskeletal Musculoskeletal: gait normal, strength equal bilaterally - Psychiatric Psychiatric: appropriate mood/affect, intact judgment & insight - Neurologic Neurologic: CNII-XII intact, moves all extremities Plan Activity: advance as tolerated Weight Bearing Status: Weight Bear as Tolerated Diet: diabetic Follow up with: PRIMARY MD DEON [Primary Care Provider] - 3-5 Days HILTON AMBROCIO MD [Staff Physician] - 7 Days Prescriptions: Rosuvastatin Calcium [Crestor] 10 mg PO QDAY #30 Ipratropium/Albuterol Sulfate [DUONEB *Not for PRN Use*] 1 ampul IH Q3H PRN #50 ampul.neb PRN Reason: Wheezing levoFLOXacin [Levaquin TAB] 750 mg PO QDAY #5 tablet Insulin Aspart (Nf) [NovoLOG 100 UNITS/ML VIAL] 10 unit SQ AC #1 vial Prednisone [predniSONE 5 mg (6-Day Pack, 21 Tabs)] 5 mg PO .TAPER #1
--- NOTE | 2022-04-11 13:31 | Progress Note ---
Assessment and Plan 81-year-old female, past medical history of pulmonary fibrosis, COPD with oxygen dependence, diabetes mellitus presents to the emergency room today from the case investigator clinic for evaluation of shortness of breath. Patient has been having shortness of breath, cough productive of some clear sputum over the last couple of hours. She denies any fever or chills, no chest pain. She however complains of some pain on the rib cage which is worse upon movement. She denies any fall or trauma to the chest or ribs.\Patient denies any lower extremity pain or swelling. Denies any headache or dizziness and no diaphoresis. Upon arrival in the emergency room patient was found to be tachycardic and hypertensive. She denies any sick contacts and no recent travel. Denies any contact with anyone with COVID-19. Patient is fully vaccinated against COVID-19. Work-up in the emergency room today, chest x-ray reveals bilateral pneumonia. Patient started on empiric IV antibiotics. Patient has no history of smoking, alcohol or drug abuse. Awake; Resting on 2 litres O2. O2 saturation 98%. Patient says shortness of breath getting better. Denies chest pain or cough at this time. Patient afebrile. No leukocytosis. Blood pressure 126/72, Pulse 80, respiration 20. Chest xray 04/07/22 reported Moderate parenchymal opacities in both lower lung zones are recurrent or chronic. Angio CT of chest reported No evidence of pulmonary embolism. Extensive bronchiectasis and fibrotic changes of the lower lungs, right greater than left, progressed from prior study in 2019. There is superimposed patchy airspace consolidation of bilateral lower lobes, suspicious for superimposed acute pneumonia. Other stable chronic and incidental findings as above. Patient is on PO Prednisone, Brovanna/Budesonide aerosol treatments, albuterol & Duoneb PRN SOB & WH, Ceftriaxone, Zithromax . Famotidine, S/C Heparin. - Patient Problems (1) Acute and chronic respiratory failure Status: Acute Plan to address problem: O2 2 litres via nasal canula. Albuterol & Duonep prn WH & SOB Continue PO prednisone Brovanna/Budesonide aerosol treatments. Continue S/C Heparin Continue Famotidine Continue ceftriaxone and Zithromax. (2) Bilateral pneumonia Status: Acute Qualifiers: Pneumonia type: due to unspecified organism Lung location: unspecified part of lung Qualified Code(s): J18.9 - Pneumonia, unspecified organism Plan to address problem: Patient is on ceftriaxone and zithromax. (3) Pulmonary fibrosis Status: Acute Plan to address problem: Recommend MAIKEL, Rheumatoid factor, CANCA and REBECCA level. Recommend deep breathing and coughing. (4) Acute kidney injury Status: Acute Plan to address problem: Management as per nephrology. (5) Extrinsic asthma Status: Acute Plan to address problem: O2 2 litres via nasal canula. Albuterol & Duoneb PRN WH & SOB Continue PO prednisone Brovanna/Budesonide aerosol treatments. Continue S/C Heparin Continue Famotidine Continue ceftriaxone and Zithromax. (6) Suspected COVID-19 virus infection Status: Acute Plan to address problem: Driver virus PCR reported Negative. (7) Thalamic stroke Status: Acute Plan to address problem: History of stroke. Management as per primary care and neurology. (8) Hypertension Status: Chronic Plan to address problem: Management as per primary care. Subjective Date of service: 04/11/22 Principal diagnosis: Pneumonia Interval history: 81-year-old female, past medical history of pulmonary fibrosis, COPD with oxygen dependence, diabetes mellitus presents to the emergency room today from the case investigator clinic for evaluation of shortness of breath. Patient has been having shortness of breath, cough productive of some clear sputum over the last couple of hours. She denies any fever or chills, no chest pain. She however complains of some pain on the rib cage which is worse upon movement. She denies any fall or trauma to the chest or ribs.\Patient denies any lower extremity pain or swelling. Denies any headache or dizziness and no diaphoresis. Upon arrival in the emergency room patient was found to be tachycardic and hypertensive. She denies any sick contacts and no recent travel. Denies any contact with anyo ne with COVID-19. Patient is fully vaccinated against COVID-19. Work-up in the emergency room today, chest x-ray reveals bilateral pneumonia. Patient started on empiric IV antibiotics. Patient has no history of smoking, alcohol or drug abuse. Awake; Resting on 2 litres O2. O2 saturation 98%. Patient says shortness of breath getting better. Denies chest pain or cough at this time. Patient afebrile. No leukocytosis. Blood pressure 126/72, Pulse 80, respiration 20. Chest xray 04/07/22 reported Moderate parenchymal opacities in both lower lung zones are recurrent or chronic. Angio CT of chest reported No evidence of pulmonary embolism. Extensive bronchiectasis and fibrotic changes of the lower lungs, right greater than left, progressed from prior study in 2019. There is superimposed patchy airspace consolidation of bilateral lower lobes, suspicious for superimposed acute pneumonia. Other stable chronic and incidental findings as above. Patient is on PO Prednisone, Brovanna/Budesonide aerosol treatments, albuterol & Duoneb PRN SOB & WH, Ceftriaxone, Zithromax . Famotidine, S/C Heparin. Objective Vital Signs - 12hr 04/11/22 04/11/22 04/11/22 08:35 08:40 10:28 Temperature 97.8 F Pulse Rate 80 Pulse Rate [ 82 Posterior Bilateral Throughout] Respiratory 20 Rate Respiratory 18 Rate [Posterior Bilateral Throughout] Blood Pressure 126/72 [Left] O2 Sat by Pulse 99 98 Oximetry Constitutional: no acute distress, alert, other (Mild shortness of breath at rest.) Eyes: non-icteric Neck: supple, no lymphadenopathy Ascultation: Bilateral: rales (fine inspiratory) Cardiovascular: regular rate and rhythm Gastrointestinal: normoactive bowel sounds, soft, non-tender Integumentary: normal Extremities: no cyanosis, no edema Neurologic: normal mental status, non-focal exam, pupils equal and round Psychiatric: mood appropriate, affect normal CBC and BMP: 04/10/22 05:56 04/11/22 05:43 ABG, PT/INR, D-dimer: ABG ABG pH 7.398 pH Units (7.350-7.450) 04/10/22 13:00 ABG pCO2 43.6 mm Hg 04/10/22 13:00 ABG pO2 49.1 mm Hg (80.0-90.0) L 04/10/22 13:00 ABG O2 Saturation 89.0 % (95.0-99.0) L 04/10/22 13:00 PT/INR, D-dimer PT 13.2 Sec. (12.2-14.9) 04/07/22 17:46 INR 0.91 (0.87-1.13) 04/07/22 17:46 Abnormal lab findings: Abnormal Labs 06/04/07/22 04/07/22 17:46 17:46 20:40 MCH 27 L RDW [place] % (Auto) 8.1 H Seg Neutrophils % Seg Neutrophils # ABG pO2 ABG HCO3 ABG O2 Saturation ABG Hemoglobin Oxyhemoglobin Sodium Chloride Carbon Dioxide BUN 21 H Creatinine 1.4 H Glucose 320 H POC Glucose 315 H Total Protein 8.5 H PTH Intact Rheumatoid Factor 04/08/22 04/08/22 04/08/22 05:04 05:04 07:38 MCH 27 L RDW [place] % (Auto) Seg Neutrophils % 72.3 H Seg Neutrophils # ABG pO2 ABG HCO3 ABG O2 Saturation ABG Hemoglobin Oxyhemoglobin Sodium Chloride 96.7 L Carbon Dioxide 31 H BUN 26 H Creatinine 1.7 H Glucose 510 H* POC Glucose 438 H Total Protein PTH Intact Rheumatoid Factor 04/08/22 04/08/22 04/08/22 12:06 16:16 17:21 MCH RDW [place] % (Auto) Seg Neutrophils % Seg Neutrophils # ABG pO2 ABG HCO3 ABG O2 Saturation ABG Hemoglobin Oxyhemoglobin Sodium Chloride Carbon Dioxide BUN Creatinine Glucose 514 H* POC Glucose 418 H 518 H Total Protein PTH Intact Rheumatoid Factor 04/08/22 04/09/22 04/09/22 22:05 07:50 11:40 MCH RDW [place] % (Auto) Seg Neutrophils % Seg Neutrophils # ABG pO2 ABG HCO3 ABG O2 Saturation ABG Hemoglobin Oxyhemoglobin Sodium Chloride Carbon Dioxide BUN Creatinine Glucose POC Glucose 459 H 425 H 585 H Total Protein PTH Intact Rheumatoid Factor 04/09/22 04/09/22 04/10/22 16:10 21:46 05:56 MCH 26 L RDW 15.4 H [place] % (Auto) Seg Neutrophils % 71.2 H Seg Neutrophils # 7.9 H ABG pO2 ABG HCO3 ABG O2 Saturation ABG Hemoglobin Oxyhemoglobin Sodium Chloride Carbon Dioxide BUN Creatinine Glucose POC Glucose 549 H 496 H Total Protein PTH Intact Rheumatoid Factor 04/10/22 04/10/22 04/10/22 05:56 05:56 07:59 MCH RDW [place] % (Auto) Seg Neutrophils % Seg Neutrophils # ABG pO2 ABG HCO3 ABG O2 Saturation ABG Hemoglobin Oxyhemoglobin Sodium 135 L Chloride Carbon Dioxide BUN 54 H Creatinine 2.1 H Glucose 411 H POC Glucose 347 H Total Protein PTH Intact 96.48 H Rheumatoid Factor 04/10/22 04/10/22 04/10/22 12:21 13:00 16:40 MCH RDW [place] % (Auto) Seg Neutrophils % Seg Neutrophils # ABG pO2 49.1 L ABG HCO3 26.3 H ABG O2 Saturation 89.0 L ABG Hemoglobin 10.5 L Oxyhemoglobin 87.5 L Sodium Chloride Carbon Dioxide BUN Creatinine Glucose POC Glucose 388 H 413 H Total Protein PTH Intact Rheumatoid Factor 04/10/22 04/11/22 04/11/22 21:27 05:43 07:34 MCH RDW [place] % (Auto) Seg Neutrophils % Seg Neutrophils # ABG pO2 ABG HCO3 ABG O2 Saturation ABG Hemoglobin Oxyhemoglobin Sodium Chloride Carbon Dioxide BUN 46 H Creatinine 2.1 H Glucose 183 H POC Glucose 432 H 142 H Total Protein PTH Intact Rheumatoid Factor 04/11/22 09:03 MCH RDW [place] % (Auto) Seg Neutrophils % Seg Neutrophils # ABG pO2 ABG HCO3 ABG O2 Saturation ABG Hemoglobin Oxyhemoglobin Sodium Chloride Carbon Dioxide BUN Creatinine Glucose POC Glucose Total Protein PTH Intact Rheumatoid Factor 117 H
[2022-04-11] MEDS ORDERED: LATANOPROST 0.005% OPHTH SOLN 2.5 ML OU SCH (18:00)
[2022-04-11] MEDS ORDERED: INSULIN GLARGINE 100 UNITS/ML SUB-Q SCH (22:00)
[2022-04-15] MEDS ORDERED: DULAGLUTIDE 1.5 MG/0.5 ML SUB-Q SCH (10:00)
== END 2022-04-11 14:36 | disposition home or self-care (01) | DRG 871 ==
LOC: ED 16:18 → 3A 23:14
PROVIDERS: ADMIT Internal Medicine Geriatric Medicine; ATTEND Hospitalist
PROC: 4A033R1 Measurement of Arterial Saturation, Peripheral, Percutaneous Approach (ICD-10-PCS; principal; 2022-04-10)
DX: A41.9 Sepsis, unspecified organism (principal); J18.9 Pneumonia, unspecified organism; J96.20 Acute and chronic respiratory failure, unspecified whether with hypoxia or hypercapnia; E87.0 Hyperosmolality and hypernatremia; J44.0 Chronic obstructive pulmonary disease with (acute) lower respiratory infection; E87.1 Hypo-osmolality and hyponatremia; N17.9 Acute kidney failure, unspecified; E11.65 Type 2 diabetes mellitus with hyperglycemia; M17.0 Bilateral primary osteoarthritis of knee; N18.9 Chronic kidney disease, unspecified; J84.10 Pulmonary fibrosis, unspecified; E11.22 Type 2 diabetes mellitus with diabetic chronic kidney disease; I12.9 Hypertensive chronic kidney disease with stage 1 through stage 4 chronic kidney disease, or unspecified chronic kidney disease; E66.9 Obesity, unspecified; Z20.822 Contact with and (suspected) exposure to COVID-19; Z68.30 Body mass index [BMI] 30.0-30.9, adult; Z88.6 Allergy status to analgesic agent; Z88.8 Allergy status to other drugs, medicaments and biological substances; Z79.4 Long term (current) use of insulin; Z99.81 Dependence on supplemental oxygen; Z90.49 Acquired absence of other specified parts of digestive tract; Z90.710 Acquired absence of both cervix and uterus; Z86.73 Personal history of transient ischemic attack (TIA), and cerebral infarction without residual deficits
CPT/HCPCS: 36415; 36600; 71045; 71275; 76770; 80048; 80053; 82164; 82803; 82947; 82962; 83880; 83970; 84145; 84439; 84443; 84484; 85025; 85610; 85730; 86021; 86038; 86431; 87040; 93005; 94640; 94760; G0378; Q0177; Q9967; J0360; J0456; J0696; J1644; J1815; J2930; J7030; U0003